=== PATIENT | female | born 1990 | race African-American/Black ===

== ENCOUNTER 2016-10-28 23:10 | Emergency (ER) | payer MEDICAID ==
[2016-10-28] MEDS ORDERED: DIPHENHYDRAMINE HCL 50 MG/ML VIAL IV ONE (23:29)
[2016-10-28] MEDS ORDERED: ONDANSETRON HCL INJ/PF 4 MG/2 ML SDV IV ONE (23:29)
[2016-10-28] MEDS ORDERED: NORMAL SALINE 1000 ML 1,000 ML IV ONE ×2 (23:29)
[2016-10-29 00:06] LABS: ABSOLUTE BASOPHILS # (AUTO) 0.1 10^3/uL (0.0-0.2); ABSOLUTE LYMPHOCYTES (AUTO) 1.3 10^3/uL (0.5-4.7); ABSOLUTE MONOCYTES (AUTO) 0.5 10^3/uL (0.1-1.4); ABSOLUTE NEUT (AUTO) 15.7 10^3/uL (1.7-8.2); BASOPHILS % (AUTO) 0.3 % (0-2); HEMOGLOBIN 14.9 g/dL (12.0-15.5); HGB HCT DIFFERENCE -0.3; LYMPHOCYTES % (AUTO) 7.2 % (13-45); MEAN CORPUSCULAR HEMOGLOBIN 33.3 pg (27.0-33.4); MEAN CORPUSCULAR HGB CONC 33.1 g/dL (32.0-36.0); MEAN CORPUSCULAR VOLUME 101 fl (80-97); MONOCYTES % (AUTO) 3.1 % (3-13); RED BLOOD COUNT 4.47 10^6/uL (3.72-5.28); RED CELL DISTRIBUTION WIDTH 12.9 % (11.5-14.0); SEGMENTED NEUTROPHILS % (AUTO) 89.4 % (42-78); WHITE BLOOD COUNT 17.6 10^3/uL (4.0-10.5)
[2016-10-29 00:20] LABS: ALANINE AMINOTRANSFERASE 31 U/L (9-52); ALBUMIN 5.4 g/dL (3.5-5.0); ALKALINE PHOSPHATASE 95 U/L (38-126); ASPARTATE AMINO TRANSFERASE 36 U/L (14-36); BILIRUBIN,TOTAL 0.9 mg/dL (0.2-1.3); BLOOD UREA NITROGEN 18 mg/dL (7-20); CALCIUM 10.4 mg/dL (8.4-10.2); CREATININE RESULT 0.93 mg/dL (0.52-1.25); GLUCOSE 154 mg/dL (75-110); POTASSIUM 3.2 mmol/L (3.6-5.0); TOTAL PROTEIN 8.7 g/dL (6.3-8.2)
[2016-10-29 00:29] LABS: CARBON DIOXIDE 32 mmol/L (22-30); CHLORIDE 90 mmol/L (98-107); SODIUM 142.4 mmol/L (137-145)
[2016-10-29 00:31] LABS: ANION GAP 20 (5-19)
[2016-10-29] MEDS ORDERED: MAG HYDROX/AL HYDROX/SIMETH SUSP 30 ML UDCUP PO ONE (01:51)
[2016-10-29] MEDS ORDERED: LIDOCAINE 2% VISCOUS SOLN 20 ML UDCUP PO ONE (01:51)
[2016-10-29] MEDS ORDERED: METOCLOPRAMIDE HCL ORAL SOLN 10 MG/10 ML UDCUP PO ONE (01:51)
[2016-10-29 02:21] LABS: APPEARANCE,URINE SLIGHTLY-CLOUDY; BILIRUBIN,URINE SMALL (NEGATIVE); GLUCOSE, URINE 50 mg/dL (NEGATIVE); KETONES,URINE 80 mg/dL (NEGATIVE); LEUKOCYTE ESTERASE,URINE NEGATIVE (NEGATIVE); NITRITE,URINE NEGATIVE (NEGATIVE); PROTEIN,URINE >=500 mg/dL (NEGATIVE); URINE SPECIFIC GRAVITY 1.028
[2016-10-29 02:32] LABS: URINE BARBITURATES SCREEN NEGATIVE; URINE METHADONE SCREEN NEGATIVE; URINE PHENCYCLIDINE SCREEN NEGATIVE
[2016-10-29] MEDS ORDERED: ONDANSETRON ODT 4 MG TAB (6 TAB/DSPK) PO PRN (02:42)
--- NOTE | 2016-10-29 02:45 | ER Document Report ---
ED GI/ - General Chief Complaint: Nausea/Vomiting/Diarrhea Stated Complaint: NAUSEA/VOMITING Notes: Patient is a 26-year-old female that comes emergency department for chief complaint of vomiting, patient states for the past 3 days she has not been able to keep anything down and has persistently vomited. Patient reports burning in her upper abdomen. She denies any diarrhea, fever, she denies any particular areas of pain. Patient denies any daily medications. Patient states she smokes marijuana only occasionally. TRAVEL OUTSIDE OF THE [place] IN LAST 30 DAYS: No - Related Data Allergies/Adverse Reactions: No Known Allergies Allergy (Verified 10/08/16 14:11) Past Medical History - General Information source: Patient - Social History Smoking Status: Never Smoker Frequency of alcohol use: None Drug Abuse: None Lives with: Family Family History: Reviewed & Not Pertinent, Other - Denied by the patient Neurological Medical History: Denies: Hx Seizures Renal/ Medical History: Denies: Hx Kidney Stones GI Medical History: Reports: Hx Gastroesophageal Reflux Disease Past Surgical History: Reports: Hx Section - x1. Denies: Hx Hysterectomy, Hx Pacemaker - Immunizations Hx Diphtheria, Pertussis, Tetanus Vaccination: Yes - < 10 yrs Review of Systems - Review of Systems Constitutional: No symptoms reported EENT: No symptoms reported Cardiovascular: No symptoms reported Respiratory: No symptoms reported Gastrointestinal: See HPI Genitourinary: No symptoms reported Female Genitourinary: No symptoms reported Musculoskeletal: No symptoms reported Skin: No symptoms reported Hematologic/Lymphatic: No symptoms reported Neurological/Psychological: No symptoms reported Physical Exam - Vital signs Vitals: Temp Pulse Resp BP Pulse Ox 98.7 F 88 18 136/98 H 98 10/29/16 04:30 10/29/16 04:30 10/29/16 04:30 10/29/16 04:30 10/29/16 04:30 Interpretation: Normal - General General appearance: Anxious In distress: Mild - Patient has difficulty holding still, appears anxious - HEENT Head: Normocephalic, Atraumatic Eyes: Normal Conjunctiva: Normal Extraocular movements intact: Yes Eyelashes: Normal Pupils: PERRL Sinus: Normal Nasal: Normal Mouth/Lips: Normal Mucous membranes: Dry Pharynx: Normal Neck: Normal - Respiratory Respiratory status: No respiratory distress Chest status: Nontender Breath sounds: Normal Chest palpation: Normal - Cardiovascular Rhythm: Regular. No: Tachycardia Heart sounds: Normal auscultation, S1 appreciated, S2 appreciated Murmur: No - Abdominal Inspection: Normal Distension: No distension Bowel sounds: Normal Tenderness: Nontender. No: Tender, Guarding Organomegaly: No organomegaly - Back Back: Normal, Nontender. 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 Patient given multiple fluid boluses of normal saline, after IV medications patient improved. Patient also given GI cocktail, after the symptoms resolved, patient asking to leave. Abdominal exam is very unremarkable with no guarding and no evidence of acute abdomen. Patient's testing is again positive for marijuana, I noticed that this is frequently positive, patient denies smoking every day but I suspect patient has developed cyclic vomiting syndrome secondary to cannabis abuse. Discussed this with patient, will provide with nausea medication, patient is to follow-up with primary care and return for any concerning symptoms. Patient states understanding and agreement. - Vital Signs Vital signs: Temp Pulse Resp BP Pulse Ox 98.7 F 88 18 136/98 H 98 10/29/16 04:30 10/29/16 04:30 10/29/16 04:30 10/29/16 04:30 10/29/16 04:30 - Laboratory Result Diagrams: 10/28/16 23:50 10/28/16 23:50 Laboratory results interpreted by me: 10/28/16 10/28/16 10/29/16 23:50 23:50 01:55 WBC 17.6 H MCV 101 H Seg Neutrophils % 89.4 H Lymphocytes % 7.2 L Absolute Neutrophils 15.7 H Potassium 3.2 L Chloride 90 L Carbon Dioxide 32 H Anion Gap 20 H Glucose 154 H Calcium 10.4 H Total Protein 8.7 H Albumin 5.4 H Urine Protein >=500 H Urine Glucose (UA) 50 H Urine Ketones 80 H Urine Bilirubin SMALL H Urine Urobilinogen 4.0 H Discharge - Discharge Clinical Impression: Dehydration Vomiting Qualifiers: Vomiting type: unspecified Vomiting Intractability: non-intractable Nausea presence: with nausea Qualified Code(s): R11.2 - Nausea with vomiting, unspecified Disposition: HOME, SELF-CARE Additional Instructions: Your symptoms are concerning for cyclic vomiting syndrome. Stop smoking marijuana. Take the Pepcid and Zofran for nausea, take Benadryl [id number] for nausea additionally. Follow-up with primary care. Return to emergency department for any concerning or worsening symptoms. Prescriptions: Famotidine [Pepcid 20 mg Tablet] 20 mg PO BID #20 tablet Ondansetron [Zofran Odt 4 mg Tablet] 1 - 2 tab PO Q4H PRN #20 tab.rapdis PRN Reason: For Nausea/Vomiting
[2016-10-29 05:34] VITALS: BP 136/98
== END 2016-10-29 04:35 | disposition home or self-care (01) ==
LOC: ER 23:10
DX: R11.2 Nausea with vomiting, unspecified (principal); E86.0 Dehydration; D72.828 Other elevated white blood cell count; F41.9 Anxiety disorder, unspecified; Z87.19 Personal history of other diseases of the digestive system; Z87.442 Personal history of urinary calculi
CPT/HCPCS: 99284; 96361; 96374; 96375; 36415; 83690; 83735; 85025; 81025; 80053; 81001; 80307; J1200; J3490 ×3; J2405; J7030

== ENCOUNTER 2017-02-04 09:44 | Emergency (ER) | payer MEDICAID ==
[2017-02-04 10:07] VITALS: BP 124/70
[2017-02-04] MEDS ORDERED: MAG HYDROX/AL HYDROX/SIMETH SUSP 30 ML UDCUP PO ONE (11:12)
[2017-02-04] MEDS ORDERED: LANSOPRAZOLE 30 MG TAB.RAP.DR PO ONE (11:12)
[2017-02-04] MEDS ORDERED: LIDOCAINE 2% VISCOUS SOLN 20 ML UDCUP PO ONE (11:12)
[2017-02-04] MEDS ORDERED: ONDANSETRON 4 MG TAB.RAPDIS PO ONE (11:12)
[2017-02-04] MEDS ORDERED: NORMAL SALINE 1000 ML 2,000 ML IV ONE (11:13)
[2017-02-04] MEDS ORDERED: ACETAMINOPHEN 325 MG TABLET PO ONE ×2 (11:13→14:50)
--- NOTE | 2017-02-04 11:15 | ER Document Report ---
ED Medical Screen (RME) - General Chief Complaint: Nausea/Vomiting Stated Complaint: NAUSEA Time seen by provider: 11:14 Mode of Arrival: Medic Information source: Patient Notes: 26-year-old female came in by EMS due to vomiting all night long. She has upper abdominal pain that started after the multiple episodes of vomiting. She has a history of GERD and feels esophageal burning at this time. She is dramatic and rolling around with her eyes and body in triage and will not maintain eye contact due to abdominal pain. No diarrhea. No fever. TRAVEL OUTSIDE OF THE [place] IN LAST 30 DAYS: No - Related Data Allergies/Adverse Reactions: No Known Allergies Allergy (Verified 10/08/16 14:11) Past Medical History Neurological Medical History: Denies: Hx Seizures Renal/ Medical History: Denies: Hx Kidney Stones, Hx Peritoneal Dialysis GI Medical History: Reports: Hx Gastroesophageal Reflux Disease Past Surgical History: Reports: Hx Section - x1. Denies: Hx Hysterectomy, Hx Pacemaker - Immunizations Hx Diphtheria, Pertussis, Tetanus Vaccination: Yes - < 10 yrs Physical Exam - Vital signs Vitals: Temp Pulse Resp BP Pulse Ox 97.9 F 88 18 124/70 97 02/04/17 10:02 02/04/17 10:02 02/04/17 10:02 02/04/17 10:02 02/04/17 10:02 Course - Vital Signs Vital signs: Temp Pulse Resp BP Pulse Ox 97.9 F 88 18 124/70 97 02/04/17 10:02 02/04/17 10:02 02/04/17 10:02 02/04/17 10:02 02/04/17 10:02
[2017-02-04 12:02] LABS: ABSOLUTE BASOPHILS # (AUTO) 0.1 10^3/uL (0.0-0.2); ABSOLUTE LYMPHOCYTES (AUTO) 1.5 10^3/uL (0.5-4.7); ABSOLUTE NEUT (AUTO) 14.3 10^3/uL (1.7-8.2); BASOPHILS % (AUTO) 0.6 % (0-2); HEMATOCRIT 43.7 % (36.0-47.0); HEMOGLOBIN 15.2 g/dL (12.0-15.5); HGB HCT DIFFERENCE 1.9; LYMPHOCYTES % (AUTO) 8.7 % (13-45); MEAN CORPUSCULAR HEMOGLOBIN 33.6 pg (27.0-33.4); MEAN CORPUSCULAR HGB CONC 34.8 g/dL (32.0-36.0); MEAN CORPUSCULAR VOLUME 97 fl (80-97); MONOCYTES % (AUTO) 6.1 % (3-13); RED BLOOD COUNT 4.53 10^6/uL (3.72-5.28); RED CELL DISTRIBUTION WIDTH 13.2 % (11.5-14.0); SEGMENTED NEUTROPHILS % (AUTO) 84.6 % (42-78)
[2017-02-04 12:20] LABS: ALANINE AMINOTRANSFERASE 34 U/L (9-52); ALBUMIN 5.7 g/dL (3.5-5.0); ALKALINE PHOSPHATASE 92 U/L (38-126); ANION GAP 27 (5-19); ASPARTATE AMINO TRANSFERASE 49 U/L (14-36); BILIRUBIN,DIRECT 0.5 mg/dL (0.0-0.4); BILIRUBIN,TOTAL 1.2 mg/dL (0.2-1.3); BLOOD UREA NITROGEN 37 mg/dL (7-20); CALCIUM 10.3 mg/dL (8.4-10.2); CARBON DIOXIDE 32 mmol/L (22-30); CHLORIDE 85 mmol/L (98-107); CREATININE RESULT 0.78 mg/dL (0.52-1.25); GLUCOSE 141 mg/dL (75-110); LIPASE 34.6 U/L (23-300); POTASSIUM 3.6 mmol/L (3.6-5.0); SODIUM 143.9 mmol/L (137-145); TOTAL PROTEIN 9.7 g/dL (6.3-8.2)
[2017-02-04 12:29] LABS: APPEARANCE,URINE CLOUDY; BILIRUBIN,URINE NEGATIVE (NEGATIVE); GLUCOSE, URINE NEGATIVE (NEGATIVE); KETONES,URINE 80 mg/dL (NEGATIVE); LEUKOCYTE ESTERASE,URINE NEGATIVE (NEGATIVE); NITRITE,URINE NEGATIVE (NEGATIVE); PROTEIN,URINE >=500 mg/dL (NEGATIVE); URINE SPECIFIC GRAVITY 1.032; UROBILINOGEN,URINE NEGATIVE mg/dL (<2.0)
--- NOTE | 2017-02-04 14:49 | ER Document Report ---
ED GI/ - General Mode of Arrival: Medic Information source: Patient TRAVEL OUTSIDE OF THE [place] IN LAST 30 DAYS: No - HPI Patient complains to provider of: Abdominal pain, Vomiting Onset: Yesterday Associated symptoms: Other - see notes above <JOSE ADAMS - Last Filed: 02/04/17 15:52> <RAHEEM GRAHAM - Last Filed: 02/23/17 15:57> - General Chief Complaint: Nausea/Vomiting Stated Complaint: NAUSEA Notes: 26 year old female with history of smoking and marijuana use presents to the ED complaining of nausea, vomiting, and abdominal pain that started last night. Patient reports that she has stopped smoking marijuana. Patient states that she takes prilosec, but it has and vomited up the last pill she took. Patient denies being . (JOSE ADAMS) - Related Data Allergies/Adverse Reactions: No Known Allergies Allergy (Verified 02/10/17 05:49) Past Medical History - General Information source: Patient - Social History Smoking Status: Never Smoker Frequency of alcohol use: None Drug Abuse: Marijuana Family History: Reviewed & Not Pertinent, Other - Denied by the patient Patient has suicidal ideation: No Patient has homicidal ideation: No GI Medical History: Reports: Hx Gastroesophageal Reflux Disease Past Surgical History: Reports: Hx Section - x1 - Immunizations Hx Diphtheria, Pertussis, Tetanus Vaccination: Yes - < 10 yrs <JOSE ADAMS - Last Filed: 02/04/17 15:52> Review of Systems - Review of Systems Constitutional: No symptoms reported EENT: No symptoms reported Cardiovascular: No symptoms reported Respiratory: No symptoms reported Gastrointestinal: See HPI, Abdominal pain, Nausea, Vomiting Genitourinary: No symptoms reported Female Genitourinary: No symptoms reported. denies: Musculoskeletal: No symptoms reported Skin: No symptoms reported Hematologic/Lymphatic: No symptoms reported Neurological/Psychological: No symptoms reported -: Yes All other systems reviewed and negative <JOSE ADAMS - Last Filed: 02/04/17 15:52> Physical Exam - General General appearance: Alert In distress: None - HEENT Head: Normocephalic, Atraumatic Eyes: Normal Extraocular movements intact: Yes Pupils: PERRL - Respiratory Respiratory status: No respiratory distress Breath sounds: Normal - Cardiovascular Rhythm: Regular Heart sounds: Normal auscultation - Abdominal Inspection: Normal Distension: No distension Tenderness: Nontender - Back Back: Normal - Extremities General upper extremity: Normal inspection, Normal ROM General lower extremity: Normal inspection, Normal ROM - Neurological Neuro grossly intact: Yes Cognition: Normal Orientation: AAOx4 Dara Coma Scale Eye Opening: Spontaneous Dara Coma Scale Verbal: Oriented [place] Coma Scale Motor: Obeys Commands [place] Coma Scale Total: 15 Speech: Normal - Psychological Associated symptoms: Normal affect, Normal mood - Skin Skin Temperature: Warm Skin Moisture: Dry Skin Color: Normal <JOSE ADAMS - Last Filed: 02/04/17 15:52> Course - Laboratory Result Diagrams: 02/04/17 11:22 02/04/17 11:22 <JOSE ADAMS - Last Filed: 02/04/17 15:52> - Laboratory Result Diagrams: 02/04/17 11:22 02/04/17 11:22 <RAHEEM GRAHAM - Last Filed: 02/23/17 15:57> - Re-evaluation Re-evalutation: 02/04/17 16:51 (RAHEEM GRAHAM) - Vital Signs Vital signs: Temp Pulse Resp BP Pulse Ox 97.9 F 88 18 124/70 97 02/04/17 10:02 02/04/17 10:02 02/04/17 10:02 02/04/17 10:02 02/04/17 10:02 - Laboratory Laboratory results interpreted by me: 02/04/17 02/04/17 02/04/17 11:22 11:22 11:22 WBC 17.0 H MCH 33.6 H Seg Neutrophils % 84.6 H Lymphocytes % 8.7 L Absolute Neutrophils 14.3 H Chloride 85 L Carbon Dioxide 32 H Anion Gap 27 H BUN 37 H Glucose 141 H Calcium 10.3 H Direct Bilirubin 0.5 H AST 49 H Total Protein 9.7 H Albumin 5.7 H Urine Protein >=500 H Urine Ketones 80 H Urine Blood SMALL H Discharge <JOSE ADAMS - Last Filed: 02/04/17 15:52> <RAHEEM GRAHAM - Last Filed: 02/23/17 15:57> - Discharge Clinical Impression: recurrent nausea vomiting, Tetrahydrocannabinol (THC) use disorder, mild, abuse Condition: Stable Disposition: HOME, SELF-CARE Additional Instructions: recurrent Vomiting Vomiting can be part of many illnesses. Most cases of vomiting are due to gastroenteritis, usually a viral infection in the intestinal tract. There is no specific treatment. The disease will end by itself. For now, the main danger to your child is dehydration. During the first few hours of the illness, give clear liquids, such as Pedialyte. Try to give small quantities frequently, such as a teaspoon of liquid every minute or about an ounce of fluids every five to ten minutes. Medications may be prescribed by the physician for special cases. After an hour or two of fluids without vomiting, add rice cereal, toast, applesauce, or bananas and other more solid foods to the clear liquids. Call the physician or go to the hospital if vomiting increases or blood appears in the bowel movement or vomitus; if your child fails to improve, or if signs of dehydration occur (no wet diapers for eight to twelve hours, tongue and mouth become dry, not acting as alert as usual). Referrals: BUZZ SPENCER MD [ACTIVE STAFF] - Follow up in 3-5 days (Call for appointment on Monday but he seen 3-5 days term for increasing worsening or new symptoms) Scribe Attestation: 02/23/17 15:56 i personally performed the services described in the documentation, reviewed the documentation recorded by the scribe in my presence and it accurately and completely records my words and actions (RAHEEM GRAHAM) Scribe Documentation - Scribe Written by Pantera:: Pantera Kam, 02/04/2017 1505 acting as scribe for :: Atilio <JOSE ADAMS - Last Filed: 02/04/17 15:52>
[2017-02-04] MEDS ORDERED: CALCIUM CARBONATE 500 MG TAB.CHEW PO ONE (14:51)
[2017-02-04 16:43] LABS: URINE BARBITURATES SCREEN NEGATIVE; URINE METHADONE SCREEN NEGATIVE; URINE OPIATES LOW NEGATIVE; URINE PHENCYCLIDINE SCREEN NEGATIVE
== END 2017-02-04 16:40 | disposition home or self-care (01) ==
LOC: ER 09:44
DX: R11.2 Nausea with vomiting, unspecified (principal)
CPT/HCPCS: 99284; 36415; 87086; 83690; 84703; 85025; 80053; 81001; 80307; J3490 ×4; S0119

== ENCOUNTER 2017-02-10 01:47 | Inpatient (IN) | payer MEDICAID ==
[2017-02-10] MEDS ORDERED: LIDOCAINE 2% VISCOUS SOLN 20 ML UDCUP PO ONE (04:26)
[2017-02-10] MEDS ORDERED: MAG HYDROX/AL HYDROX/SIMETH SUSP 30 ML UDCUP PO ONE (04:26)
[2017-02-10] MEDS ORDERED: METOCLOPRAMIDE HCL ORAL SOLN 10 MG/10 ML UDCUP PO ONE (04:26)
[2017-02-10] MEDS ORDERED: NORMAL SALINE 1000 ML 1,000 ML IV ONE ×2 (04:29)
--- NOTE | 2017-02-10 04:32 | ER Document Report ---
ED GI/ - General Chief Complaint: Nausea/Vomiting/Diarrhea Stated Complaint: NAUSEA VOMITING DIARRHEA Time seen by provider: 04:30 Notes: Patient is a 26-year-old female that comes emergency department for chief complaint of nausea and vomiting with occasional loose stools for the past 3 days. She states she has vomited nonstop, over 20 times a day. Patient has had episodes like this in the past, has a known history of marijuana use. Patient denies blood in vomit or stool. She denies fever. She states she got lightheaded and passed out in the kitchen earlier today. She denies head pain, denies back pain, denies any areas of pain. She states she is just nauseated. She denies any particular area of abdominal pain. She states she last smoked marijuana on Monday. She denies any daily medications or surgeries. She denies any other past medical history. TRAVEL OUTSIDE OF THE [place] IN LAST 30 DAYS: No - Related Data Allergies/Adverse Reactions: No Known Allergies Allergy (Verified 02/10/17 05:49) Past Medical History - General Information source: Patient - Social History Smoking Status: Never Smoker Drug Abuse: Marijuana Lives with: Alone Family History: Reviewed & Not Pertinent, Other - Denied by the patient Neurological Medical History: Denies: Hx Seizures Renal/ Medical History: Denies: Hx Kidney Stones, Hx Peritoneal Dialysis GI Medical History: Reports: Hx Gastroesophageal Reflux Disease Past Surgical History: Reports: Hx Section - x1. Denies: Hx Hysterectomy, Hx Pacemaker - Immunizations Hx Diphtheria, Pertussis, Tetanus Vaccination: Yes - < 10 yrs Review of Systems - Review of Systems Constitutional: No symptoms reported EENT: No symptoms reported Cardiovascular: No symptoms reported Respiratory: No symptoms reported Gastrointestinal: See HPI Genitourinary: No symptoms reported Female Genitourinary: No symptoms reported Musculoskeletal: No symptoms reported Skin: No symptoms reported Hematologic/Lymphatic: No symptoms reported Neurological/Psychological: See HPI Physical Exam - Vital signs Vitals: Temp Pulse Resp BP Pulse Ox 98.6 F 82 19 134/69 H 94 02/10/17 01:59 02/10/17 01:59 02/10/17 01:59 02/10/17 01:59 02/10/17 01:59 Interpretation: Normal - General General appearance: Anxious In distress: None - HEENT Head: Normocephalic, Atraumatic Eyes: Normal Conjunctiva: Normal Extraocular movements intact: Yes Eyelashes: Normal Pupils: PERRL Mouth/Lips: Normal Mucous membranes: Dry Pharynx: Normal Neck: Normal - Respiratory Respiratory status: No respiratory distress Chest status: Nontender Breath sounds: Normal Chest palpation: Normal - Cardiovascular Rhythm: Regular Heart sounds: Normal auscultation Murmur: No - Abdominal Inspection: Normal Distension: No distension Bowel sounds: Normal Tenderness: Nontender. No: Tender - Actually very soft and completely benign abdomen with no guarding whatsoever, Guarding Organomegaly: No organomegaly - Back Back: Normal, Nontender. No: CVA tenderness - Extremities General upper extremity: Normal inspection, Nontender, Normal color, Normal ROM , Normal temperature General lower extremity: Normal inspection, Nontender, Normal color, Normal ROM , Normal temperature, Normal weight bearing. No: Kya's sign - Neurological Neuro grossly intact: Yes Cognition: Normal Orientation: AAOx4 Dara Coma Scale Eye Opening: Spontaneous Dara Coma Scale Verbal: Oriented Dara Coma Scale Motor: Obeys Commands Dara Coma Scale Total: 15 Speech: Normal Motor strength normal: LUE, RUE, LLE, RLE Sensory: Normal - Psychological Associated symptoms: Anxious - Skin Skin Temperature: Warm Skin Moisture: Dry Skin Color: Normal Course - Re-evaluation Re-evalutation: Patient reportedly much more comfortable after GI cocktail, she went to sleep, however she awoke and was dry heaving in the room. Patient is not tachycardic, workup pending. Patient is a very soft abdomen. Patient will be given 2 L normal saline. Workup is worse than patient appears. Leukocytosis at 27,000, bicarbonate of 53 , potassium of only 2.1. Sodium of 121. Magnesium tested and pending. Patient continues to have very benign exam. Discussed with Dr. Monsalve, recommends admission to the hospital for rehydration , sodium correction, and potassium replacement. Patient is very agreeable with this plan. Discussed with Dr. Dimas, he states the patient is not under his care. Discussed with Dr. Pino, patient will be admitted to the hospital. - Vital Signs Vital signs: Temp Pulse Resp BP Pulse Ox 98.6 F 69 18 124/70 94 02/10/17 01:59 02/10/17 07:00 02/10/17 07:00 02/10/17 07:00 02/10/17 01:59 - Laboratory Result Diagrams: 02/10/17 04:50 02/10/17 04:50 Laboratory results interpreted by me: 02/10/17 02/10/17 02/10/17 04:50 04:50 04:50 WBC 27.3 H Hgb 15.7 H MCH 33.6 H Band Neutrophils % 1 L Lymphocytes % (Manual) 11 L Abs Neuts (Manual) 21.6 H Abs Monocytes (Manual) 1.9 H Sodium 121.3 L Potassium 2.1 L* Chloride 54 L Carbon Dioxide 53 H* BUN 36 H Glucose 143 H Magnesium Total Bilirubin 1.4 H AST 197 H ALT 82 H Total Protein 8.3 H Urine Protein >=500 H Urine Glucose (UA) 50 H Urine Blood MODERATE H Urine Urobilinogen 4.0 H 02/10/17 04:50 WBC Hgb MCH Band Neutrophils % Lymphocytes % (Manual) Abs Neuts (Manual) Abs Monocytes (Manual) Sodium Potassium Chloride Carbon Dioxide BUN Glucose Magnesium 2.8 H Total Bilirubin AST ALT Total Protein Urine Protein Urine Glucose (UA) Urine Blood Urine Urobilinogen Discharge - Discharge Clinical Impression: Cannabis abuse, Hyponatremia, Hypokalemia Vomiting Qualifiers: Vomiting type: unspecified Vomiting Intractability: non-intractable Nausea presence: with nausea Qualified Code(s): R11.2 - Nausea with vomiting, unspecified Condition: Stable Disposition: ADMITTED INPATIENT Admitting Provider: Hospitalist Unit Admitted: Telemetry Referrals: EMILEE OTERO MD [Primary Care Provider] - Follow up as needed
[2017-02-10 05:24] LABS: HEMATOCRIT 43.7 % (36.0-47.0); HEMOGLOBIN 15.7 g/dL (12.0-15.5); HGB HCT DIFFERENCE 3.4; MEAN CORPUSCULAR HEMOGLOBIN 33.6 pg (27.0-33.4); MEAN CORPUSCULAR HGB CONC 35.9 g/dL (32.0-36.0); MEAN CORPUSCULAR VOLUME 94 fl (80-97); RED BLOOD COUNT 4.66 10^6/uL (3.72-5.28); RED CELL DISTRIBUTION WIDTH 12.9 % (11.5-14.0); WHITE BLOOD COUNT 27.3 10^3/uL (4.0-10.5)
[2017-02-10 05:30] LABS: URINE BARBITURATES SCREEN NEGATIVE; URINE METHADONE SCREEN NEGATIVE; URINE OPIATES LOW NEGATIVE; URINE PHENCYCLIDINE SCREEN NEGATIVE
[2017-02-10 05:33] LABS: APPEARANCE,URINE SLIGHTLY-CLOUDY; BILIRUBIN,URINE NEGATIVE (NEGATIVE); GLUCOSE, URINE 50 mg/dL (NEGATIVE); KETONES,URINE NEGATIVE (NEGATIVE); LEUKOCYTE ESTERASE,URINE NEGATIVE (NEGATIVE); NITRITE,URINE NEGATIVE (NEGATIVE); PROTEIN,URINE >=500 mg/dL (NEGATIVE); URINE SPECIFIC GRAVITY 1.023
[2017-02-10 05:37] LABS: ALANINE AMINOTRANSFERASE 82 U/L (9-52); ALBUMIN 4.7 g/dL (3.5-5.0); ALKALINE PHOSPHATASE 104 U/L (38-126); ASPARTATE AMINO TRANSFERASE 197 U/L (14-36); BILIRUBIN,DIRECT 0.4 mg/dL (0.0-0.4); BILIRUBIN,TOTAL 1.4 mg/dL (0.2-1.3); BLOOD UREA NITROGEN 36 mg/dL (7-20); CALCIUM 9.7 mg/dL (8.4-10.2); CHLORIDE 54 mmol/L (98-107); CREATININE RESULT 0.96 mg/dL (0.52-1.25); GLUCOSE 143 mg/dL (75-110); LIPASE 87.1 U/L (23-300); SODIUM 121.3 mmol/L (137-145); TOTAL PROTEIN 8.3 g/dL (6.3-8.2)
[2017-02-10 05:42] LABS: BAND NEUTROPHILS % (MANUAL) 1 % (3-5); BASOPHILS % (MANUAL) 0 % (0-2); EOSINOPHILS % (MANUAL) 0 % (0-6); LYMPHOCYTES % (MANUAL) 11 % (13-45); TOTAL CELLS COUNTED 100
[2017-02-10 05:44] LABS: RBC MORPHOLOGY COMMENT NORMO-CYTIC/CHROMIC; TOXIC VACUOLATION PRESENT
[2017-02-10 05:47] LABS: ANION GAP 14 (5-19)
[2017-02-10 05:51] LABS: CARBON DIOXIDE 53 mmol/L (22-30); POTASSIUM 2.1 mmol/L (3.6-5.0)
[2017-02-10] MEDS ORDERED: CAPSAICIN HP 0.075% CREAM 60 GM TP ONE (05:52)
[2017-02-10] MEDS ORDERED: POTASSIUM CHLORIDE 10 MEQ TABLET.SA PO ONE (05:53)
[2017-02-10] MEDS ORDERED: NORMAL SALINE 1000 ML 1,000 ML IV PRN (06:15)
[2017-02-10] MEDS: POTASSI CL 20 MEQ/50 ML RIDER 50 ML IV SCH ×4 (06:30→22:09)
[2017-02-10] MEDS ORDERED: CAPSAICIN HP 0.075% CREAM 60 GM ONE (07:16)
--- NOTE | 2017-02-10 09:35 | EKG REPORT ---
SEVERITY:- ABNORMAL ECG - SINUS RHYTHM CONSIDER LEFT VENTRICULAR HYPERTROPHY PROLONGED QT INTERVAL : Confirmed by: Ronel Lane 10-Feb-2017 09:34:52
[2017-02-10] MEDS ORDERED: ONDANSETRON HCL INJ/PF 4 MG/2 ML SDV IV PRN (11:12)
--- NOTE | 2017-02-10 11:42 | PDOC H&P ---
History of Present Illness Admission Date/PCP: 02/10/17 07:59 EMILEE OTERO MD Patient complains of: intractable vomiting History of Present Illness: TONY CANALES is a 26 year old female that comes emergency department for chief complaint of nausea and vomiting with occasional loose stools for the past 3 days. She states she has vomited nonstop , over 20 times a day. Patient has had episodes like this in the past, has a known history of marijuana use. Patient denies blood in vomit or stool. She denies fever. She states she got lightheaded and passed out in the kitchen earlier today. She denies head pain, denies back pain, denies any areas of pain. She states she is just nauseated. She denies any particular area of abdominal pain. She states she last smoked marijuana on Monday. She denies any daily medications or surgeries. She denies any other past medical history. Past Medical History Neurological Medical History: Denies: Seizures GI Medical History: Reports: Gastroesophageal Reflux Disease Past Surgical History Past Surgical History: Reports: Section - x1 Denies: Hysterectomy, Pacemaker Social History Information Source: Patient Lives with: Alone Smoking Status: Current Every Day Smoker Frequency of Alcohol Use: None Hx Recreational Drug Use: Yes Drugs: Marijuana Hx Prescription Drug Abuse: No - Advance Directive Resuscitation Status: Full Code Surrogate healthcare decision maker:: Her mother Maite Family History Family History: Reviewed & Not Pertinent, Other - Denied by the patient Parental Family History Reviewed: Yes Children Family History Reviewed: Yes Sibling(s) Family History Reviewed.: Yes Medication/Allergy Home Medications: No Home Medications 02/10/17 Allergies/Adverse Reactions: No Known Allergies Allergy (Verified 02/10/17 05:49) Review of Systems Constitutional: ABSENT: chills, fever(s), headache(s), weight gain, weight loss Eyes: ABSENT: visual disturbances Ears: ABSENT: hearing changes Cardiovascular: ABSENT: chest pain, dyspnea on exertion, edema, orthropnea, palpitations Respiratory: ABSENT: cough, hemoptysis Gastrointestinal: PRESENT: as per HPI, abdominal pain - Diffuse, nausea, vomiting. ABSENT: constipation, diarrhea, hematemesis, hematochezia Genitourinary: ABSENT: dysuria, hematuria Musculoskeletal: ABSENT: joint swelling Integumentary: ABSENT: rash, wounds Neurological: ABSENT: abnormal gait, abnormal speech, confusion, dizziness, focal weakness, syncope Psychiatric: ABSENT: anxiety, depression, homidical ideation, suicidal ideation Endocrine: ABSENT: cold intolerance, heat intolerance, polydipsia, polyuria Hematologic/Lymphatic: ABSENT: easy bleeding, easy bruising Physical Exam Vital Signs: Temp Pulse Resp BP Pulse Ox 98.6 F 69 18 124/70 94 02/10/17 01:59 02/10/17 07:00 02/10/17 07:00 02/10/17 07:00 02/10/17 01:59 General appearance: PRESENT: no acute distress, well-developed, well-nourished Head exam: PRESENT: atraumatic, normocephalic Eye exam: PRESENT: conjunctiva pink, EOMI, PERRLA. ABSENT: scleral icterus Ear exam: PRESENT: normal external ear exam Mouth exam: PRESENT: moist, tongue midline Neck exam: ABSENT: carotid bruit, JVD, lymphadenopathy, thyromegaly Respiratory exam: PRESENT: clear to auscultation jef. ABSENT: rales, rhonchi, wheezes Cardiovascular exam: PRESENT: RRR. ABSENT: diastolic murmur, rubs, systolic murmur Pulses: PRESENT: normal dorsalis pedis pul Vascular exam: PRESENT: normal capillary refill GI/Abdominal exam: PRESENT: normal bowel sounds, soft. ABSENT: distended, guarding, mass, organolmegaly, rebound, tenderness Rectal exam: PRESENT: deferred Extremities exam: PRESENT: full ROM. ABSENT: calf tenderness, clubbing, pedal edema Neurological exam: PRESENT: alert, awake, oriented to person, oriented to place , oriented to time, oriented to situation, CN II-XII grossly intact. ABSENT: motor sensory deficit Psychiatric exam: PRESENT: appropriate affect, normal mood. ABSENT: homicidal ideation, suicidal ideation Skin exam: PRESENT: dry, intact, warm. ABSENT: cyanosis, rash Results Laboratory Results: Labs- All tests 24 hr 02/10/17 02/10/17 02/10/17 04:50 04:50 04:50 WBC 27.3 H RBC 4.66 Hgb 15.7 H Hct 43.7 MCV 94 MCH 33.6 H MCHC 35.9 RDW 12.9 Plt Count 292 Total Counted 100 Seg Neutrophils % Not Reportable Seg Neuts % (Manual) 78 Band Neutrophils % 1 L Lymphocytes % Not Reportable Lymphocytes % (Manual) 11 L Atypical Lymphs % 3 Monocytes % Not Reportable Monocytes % (Manual) 7 Eosinophils % Not Reportable Eosinophils % (Manual) 0 Basophils % Not Reportable Basophils % (Manual) 0 Absolute Neutrophils Not Reportable Abs Neuts (Manual) 21.6 H Absolute Lymphocytes Not Reportable Abs Lymphs (Manual) 3.8 Absolute Monocytes Not Reportable Abs Monocytes (Manual) 1.9 H Absolute Eosinophils Not Reportable Absolute Eos (Manual) 0.0 Absolute Basophils Not Reportable Abs Basophils (Manual) 0.0 Toxic Vacuolation PRESENT Platelet Comment ADEQUATE RBC Morph Comment NORMO-CYTIC/CHROMIC Sodium 121.3 L Potassium 2.1 L* Chloride 54 L Carbon Dioxide 53 H* Anion Gap 14 BUN 36 H Creatinine 0.96 Est GFR ( Amer) > 60 Est GFR (Non-Af Amer) > 60 Glucose 143 H Calcium 9.7 Magnesium Total Bilirubin 1.4 H Direct Bilirubin 0.4 Indirect Bilirubin Not Reportable Neonat Total Bilirubin Not Reportable AST 197 H ALT 82 H Alkaline Phosphatase 104 Total Protein 8.3 H Albumin 4.7 Lipase 87.1 Serum HCG, Qual NEGATIVE Urine Color Urine Appearance Urine pH Ur Specific [place] Urine Protein Urine Glucose (UA) Urine Ketones Urine Blood Urine Nitrite Urine Bilirubin Urine Urobilinogen Ur Leukocyte Esterase Urine WBC (Auto) Urine RBC (Auto) Urine Bacteria (Auto) Squamous Epi Cells Auto Urine Mucus (Auto) Urine Ascorbic Acid Urine Opiates Screen Urine Methadone Screen Ur Barbiturates Screen Ur Phencyclidine Scrn Ur Amphetamines Screen U Benzodiazepines Scrn Urine Cocaine Screen U Marijuana (THC) Screen 02/10/17 02/10/17 02/10/17 04:50 04:50 04:50 WBC RBC Hgb Hct MCV MCH MCHC RDW Plt Count Total Counted Seg Neutrophils % Seg Neuts % (Manual) Band Neutrophils % Lymphocytes % Lymphocytes % (Manual) Atypical Lymphs % Monocytes % Monocytes % (Manual) Eosinophils % Eosinophils % (Manual) Basophils % Basophils % (Manual) Absolute Neutrophils Abs Neuts (Manual) Absolute Lymphocytes Abs Lymphs (Manual) Absolute Monocytes Abs Monocytes (Manual) Absolute Eosinophils Absolute Eos (Manual) Absolute Basophils Abs Basophils (Manual) Toxic Vacuolation Platelet Comment RBC Morph Comment Sodium Potassium Chloride Carbon Dioxide Anion Gap BUN Creatinine Est GFR ( Amer) Est GFR (Non-Af Amer) Glucose Calcium Magnesium 2.8 H Total Bilirubin Direct Bilirubin Indirect Bilirubin Neonat Total Bilirubin AST ALT Alkaline Phosphatase Total Protein Albumin Lipase Serum HCG, Qual Urine Color YELLOW Urine Appearance SLIGHTLY-CLOUDY Urine pH 6.0 Ur Specific [place] 1.023 Urine Protein >=500 H Urine Glucose (UA) 50 H Urine Ketones NEGATIVE Urine Blood MODERATE H Urine Nitrite NEGATIVE Urine Bilirubin NEGATIVE Urine Urobilinogen 4.0 H Ur Leukocyte Esterase NEGATIVE Urine WBC (Auto) 8 Urine RBC (Auto) 6 Urine Bacteria (Auto) TRACE Squamous Epi Cells Auto 2 Urine Mucus (Auto) RARE Urine Ascorbic Acid NEGATIVE Urine Opiates Screen NEGATIVE Urine Methadone Screen NEGATIVE Ur Barbiturates Screen NEGATIVE Ur Phencyclidine Scrn NEGATIVE Ur Amphetamines Screen NEGATIVE U Benzodiazepines Scrn NEGATIVE Urine Cocaine Screen NEGATIVE U Marijuana (THC) Screen UNCONFIRMED POSITIVE EKG Comments: SINUS RHYTHM [LVHC] . CONSIDER LEFT VENTRICULAR HYPERTROPHY - STMT - * PROLONGED QT INTERVAL [id number] TONY CANALES 10-Feb-2017 06:23:18 : 1990 26 Years Female Race: Black Dept: ED Oper: MG HR 69 WA 144 QRSD 82 QT 444 QTc 476 -- AXIS -- P 18 QRS 10 T 214 Requested By: ERICK ADAMS Order Assessment & Plan - Diagnosis (1) Cannabis abuse Is this a current diagnosis for this admission?: Yes (2) Hypokalemia Is this a current diagnosis for this admission?: Yes (3) Hyponatremia Is this a current diagnosis for this admission?: Yes (4) Vomiting Qualifiers: Vomiting type: unspecified Vomiting Intractability: non-intractable Nausea presence: with nausea Qualified Code(s): R11.2 - Nausea with vomiting, unspecified (5) Leukocytosis Is this a current diagnosis for this admission?: YesPlan: Likely related to SIRS and dehydration There is no fever No signs of infection We will repeat in a.m. after hydration - Time Time Spent with patient: We'll replenish electrolytes Hydrate Repeat EKG in a.m. Noted that the EKG is quite normal with some ST-T changes EKG abnormalities likely to be related to hypomagnesemia and hypokalemia Time Spent: 50 to 70 Minutes - Inpatient Certification Medical Necessity: Need Close Monitoring Due to Risk of Patient Decompensation, Need For IV Fluids, Need For Continuous Telemetry Monitoring
[2017-02-10] MEDS ORDERED: PANTOPRAZOLE SODIUM 40 MG VIAL IV ONE (12:00)
[2017-02-10] MEDS: POTASSI CL 40 MEQ/NS 1L 1,000 ML IV PRN ×2 (12:04→17:40)
[2017-02-10 16:37] LABS: BLOOD UREA NITROGEN 19 mg/dL (7-20); CALCIUM 8.6 mg/dL (8.4-10.2); CHLORIDE 76 mmol/L (98-107); GLUCOSE 92 mg/dL (75-110); MAGNESIUM 2.3 mg/dL (1.6-2.3)
[2017-02-10 16:46] LABS: ANION GAP 8 (5-19)
[2017-02-10 16:48] LABS: POTASSIUM 2.7 mmol/L (3.6-5.0)
[2017-02-10 16:49] LABS: CARBON DIOXIDE 44 mmol/L (22-30)
[2017-02-10] MEDS ORDERED: POTASSI CL 40 MEQ/NS 1L 1,000 ML IV PRN (17:59)
[2017-02-10] MEDS ORDERED: NORMAL SALINE 1000 ML 2,000 ML IV PRN (18:30)
[2017-02-10] MEDS ORDERED: POTASSIUM CHLORIDE 20 MEQ/15 ML UDCUP PO ONE (18:30)
--- NOTE | 2017-02-10 19:36 | EKG REPORT ---
SEVERITY:- ABNORMAL ECG - SINUS RHYTHM ABNORMAL T, CONSIDER ISCHEMIA, INFERIOR LEADS PROLONGED QT INTERVAL : Confirmed by: Ronel Lane 10-Feb-2017 19:35:57
[2017-02-10] MEDS: PANTOPRAZOLE SODIUM 40 MG VIAL IV SCH (22:09)
[2017-02-11] MEDS ORDERED: POTASSI CL 20 MEQ/50 ML RIDER 20 MEQ/50 ML RTUPB IV ONE (02:45)
[2017-02-11 06:50] LABS: ANION GAP 8 (5-19); BLOOD UREA NITROGEN 10 mg/dL (7-20); CARBON DIOXIDE 36 mmol/L (22-30); CHLORIDE 89 mmol/L (98-107); CREATININE RESULT 0.73 mg/dL (0.52-1.25); GLUCOSE 80 mg/dL (75-110); MAGNESIUM 1.9 mg/dL (1.6-2.3); SODIUM 132.9 mmol/L (137-145)
[2017-02-11 06:51] LABS: THYROID STIMULATING HORMONE 0.6 uIU/mL (0.47-4.68)
[2017-02-11 06:58] LABS: POTASSIUM 2.9 mmol/L (3.6-5.0)
[2017-02-11] MEDS: ENOXAPARIN SODIUM INJ 40 MG/0.4 ML DISP.SYRIN SUBCUT SCH (08:02)
[2017-02-11] MEDS ORDERED: POTASSIUM CHLORIDE 20 MEQ/15 ML UDCUP PO SCH (09:00)
[2017-02-11] MEDS: PANTOPRAZOLE SODIUM 40 MG VIAL IV SCH ×2 (09:37→22:57)
[2017-02-11] MEDS ORDERED: POTASSI CL 40 MEQ/NS 1L 1,000 ML IV PRN (09:38)
[2017-02-11] MEDS ORDERED: POTASSIUM CHLORIDE 10 MEQ TABLET.SA PO ONE ×2 (10:15→11:15)
[2017-02-11 12:32] LABS: CREATINE KINASE MB 0.84 ng/mL (<4.55); TROPONIN I 0.048 ng/mL
[2017-02-11 16:48] LABS: HEMATOCRIT 34.1 % (36.0-47.0); HGB HCT DIFFERENCE 1.3; MEAN CORPUSCULAR HEMOGLOBIN 33.6 pg (27.0-33.4); MEAN CORPUSCULAR HGB CONC 34.5 g/dL (32.0-36.0); MEAN CORPUSCULAR VOLUME 97 fl (80-97); RED BLOOD COUNT 3.51 10^6/uL (3.72-5.28); RED CELL DISTRIBUTION WIDTH 12.8 % (11.5-14.0); WHITE BLOOD COUNT 16.5 10^3/uL (4.0-10.5)
[2017-02-11 16:56] LABS: ANION GAP 10 (5-19); BLOOD UREA NITROGEN 10 mg/dL (7-20); CALCIUM 8.9 mg/dL (8.4-10.2); CARBON DIOXIDE 32 mmol/L (22-30); CHLORIDE 91 mmol/L (98-107); GLUCOSE 144 mg/dL (75-110); POTASSIUM 3.4 mmol/L (3.6-5.0); SODIUM 133.3 mmol/L (137-145)
[2017-02-11 17:09] LABS: BASOPHILS % (MANUAL) 0 % (0-2); EOSINOPHILS % (MANUAL) 5 % (0-6); LYMPHOCYTES % (MANUAL) 20 % (13-45); TOTAL CELLS COUNTED 100
[2017-02-11 17:10] LABS: HEMOGLOBIN 11.8 g/dL (12.0-15.5); RBC MORPHOLOGY COMMENT NORMO-CYTIC/CHROMIC
[2017-02-11 18:16] LABS: URINE BARBITURATES SCREEN NEGATIVE; URINE METHADONE SCREEN NEGATIVE; URINE OPIATES LOW NEGATIVE; URINE PHENCYCLIDINE SCREEN NEGATIVE
[2017-02-11] MEDS: NORMAL SALINE 1000 ML 1,000 ML IV PRN (22:57)
[2017-02-12 03:50] VITALS: BP 133/87
[2017-02-12] MEDS: NORMAL SALINE 1000 ML 1,000 ML IV PRN (03:51)
[2017-02-12 06:52] LABS: HEMATOCRIT 33.9 % (36.0-47.0); HEMOGLOBIN 11.6 g/dL (12.0-15.5); HGB HCT DIFFERENCE 0.9; MEAN CORPUSCULAR HEMOGLOBIN 33.5 pg (27.0-33.4); MEAN CORPUSCULAR HGB CONC 34.2 g/dL (32.0-36.0); MEAN CORPUSCULAR VOLUME 98 fl (80-97); RED BLOOD COUNT 3.47 10^6/uL (3.72-5.28); RED CELL DISTRIBUTION WIDTH 12.8 % (11.5-14.0); WHITE BLOOD COUNT 14.9 10^3/uL (4.0-10.5)
[2017-02-12 07:04] LABS: ANION GAP 11 (5-19); BLOOD UREA NITROGEN 7 mg/dL (7-20); CALCIUM 8.3 mg/dL (8.4-10.2); CARBON DIOXIDE 29 mmol/L (22-30); CHLORIDE 94 mmol/L (98-107); CREATINE KINASE 494 U/L (30-135); CREATININE RESULT 0.61 mg/dL (0.52-1.25); GLUCOSE 119 mg/dL (75-110); SODIUM 134.1 mmol/L (137-145)
[2017-02-12 07:23] LABS: BASOPHILS % (MANUAL) 1 % (0-2); EOSINOPHILS % (MANUAL) 2 % (0-6); LYMPHOCYTES % (MANUAL) 30 % (13-45); RBC MORPHOLOGY COMMENT NORMO-CYTIC/CHROMIC; TOTAL CELLS COUNTED 100
[2017-02-12 07:26] LABS: POTASSIUM 2.9 mmol/L (3.6-5.0)
[2017-02-12] MEDS: ENOXAPARIN SODIUM INJ 40 MG/0.4 ML DISP.SYRIN SUBCUT SCH (08:56)
--- NOTE | 2017-02-12 08:56 | PDOC DISCHARGE SUMMARY ---
General - Admit/Disc Date/PCP Admission Date/Primary Care Provider: 02/10/17 11:06 Referred to [facility] Discharge Date: 02/12/17 - Discharge Diagnosis (1) Cannabis abuse Is this a current diagnosis for this admission?: Yes (2) Hypokalemia Is this a current diagnosis for this admission?: Yes (3) Hyponatremia Is this a current diagnosis for this admission?: Yes (5) Leukocytosis Is this a current diagnosis for this admission?: Yes (6) Abnormal EKG Is this a current diagnosis for this admission?: YesSummary: ST-T changes on inferior leads Likely to be secondary to electrolyte imbalance Patient's troponins were in intermediate range She denied use of cocaine and never had chest pains 02/11/17 02/11/17 02/11/17 11:20 17:35 19:20 Troponin I 0.048 0.050 Urine Cocaine Screen NEGATIVE 02/12/17 01:02 Troponin I 0.058 Urine Cocaine Screen An echocardiogram should be performed as an outpatient (7) Rhabdomyolysis Is this a current diagnosis for this admission?: YesSummary: 02/11/17 02/11/17 02/12/17 11:20 13:11 05:58 Creatine Kinase 872 H 744 H 494 H Was treated with intravenous fluids and CPK did come down during hospital stay (8) Metabolic alkalosis Is this a current diagnosis for this admission?: YesSummary: Secondary to severe dehydration and volume contraction w 02/10/17 02/12/17 04:50 05:58 Sodium 121.3 L 134.1 L Potassium 2.1 L* 2.9 L* Chloride 54 L 94 L Carbon Dioxide 53 H* 29 as improved at discharge - Additional Information Resuscitation Status: Full Code Discharge Diet: As Tolerated Home Medications: Potassium Chloride [K-Tab ER] 20 meq PO BID #20 tablet.er 02/12/17 History of Present Illness Patient complains of: vomiting History of Present Illness: TONY CANALES is a 26 year old female that comes emergency department for chief complaint of nausea and vomiting with occasional loose stools for the past 3 days. She states she has vomited nonstop , over 20 times a day. Patient has had episodes like this in the past, has a known history of marijuana use. Patient denies blood in vomit or stool. She denies fever. She states she got lightheaded and passed out in the kitchen earlier today. She denies head pain, denies back pain, denies any areas of pain. She states she is just nauseated. She denies any particular area of abdominal pain. She states she last smoked marijuana on Monday. She denies any daily medications or surgeries. She denies any other past medical history. Hospital Course Hospital Course: Patient was admitted to a with his history of intractable vomiting and hypokalemia Patient did use cannabis prior to the visit and had prior admission with cyclic vomiting Patient had severe hypokalemia that was somewhat replenished Patient did not want to stay any longer for correction of hypokalemia treated by mouth meds Patient also has severe contraction alkalosis secondary to vomiting The metabolic alkalosis corrected at discharge CPK was elevated initially and was on the downward trend during the hospital stay with IV fluid She was asymptomatic at discharge Physical Exam Vital Signs: Temp Pulse Resp BP Pulse Ox 98.5 F 79 16 133/87 H 100 02/12/17 03:49 02/12/17 07:00 02/12/17 03:49 02/12/17 03:49 02/12/17 03:49 Intake & Output 02/11/17 02/12/17 02/13/17 00:59 00:59 00:59 Intake Total 2165 4649 3134 Output Total 6 Balance 2159 4649 3134 Weight 76.5 kg 78.6 kg 79 kg General appearance: PRESENT: no acute distress, well-developed, well-nourished Head exam: PRESENT: atraumatic, normocephalic Eye exam: PRESENT: conjunctiva pink, EOMI, PERRLA. ABSENT: scleral icterus Ear exam: PRESENT: normal external ear exam Mouth exam: PRESENT: moist, tongue midline Neck exam: ABSENT: carotid bruit, JVD, lymphadenopathy, thyromegaly Respiratory exam: PRESENT: clear to auscultation jef. ABSENT: rales, rhonchi, wheezes Cardiovascular exam: PRESENT: RRR. ABSENT: diastolic murmur, rubs, systolic murmur Pulses: PRESENT: normal dorsalis pedis pul Vascular exam: PRESENT: normal capillary refill GI/Abdominal exam: PRESENT: normal bowel sounds, soft. ABSENT: distended, guarding, mass, organolmegaly, rebound, tenderness Rectal exam: PRESENT: deferred Extremities exam: PRESENT: full ROM. ABSENT: calf tenderness, clubbing, pedal edema Neurological exam: PRESENT: alert, awake, oriented to person, oriented to place , oriented to time, oriented to situation, CN II-XII grossly intact. ABSENT: motor sensory deficit Psychiatric exam: PRESENT: appropriate affect, normal mood. ABSENT: homicidal ideation, suicidal ideation Skin exam: PRESENT: dry, intact, warm. ABSENT: cyanosis, rash Results Laboratory Results: 02/12/17 05:58 02/12/17 05:58 02/11/17 02/11/17 02/12/17 16:20 16:20 05:58 WBC 16.5 H 14.9 H RBC 3.51 L 3.47 L Hgb 11.8 L D 11.6 L Hct 34.1 L 33.9 L MCV 97 98 H MCH 33.6 H 33.5 H MCHC 34.5 34.2 RDW 12.8 12.8 Plt Count 220 228 Seg Neutrophils % Not Reportable Not Reportable Lymphocytes % Not Reportable Not Reportable Monocytes % Not Reportable Not Reportable Eosinophils % Not Reportable Not Reportable Basophils % Not Reportable Not Reportable Absolute Neutrophils Not Reportable Not Reportable Absolute Lymphocytes Not Reportable Not Reportable Absolute Monocytes Not Reportable Not Reportable Absolute Eosinophils Not Reportable Not Reportable Absolute Basophils Not Reportable Not Reportable Sodium 133.3 L Potassium 3.4 L Chloride 91 L Carbon Dioxide 32 H Anion Gap 10 BUN 10 Creatinine 0.70 Est GFR ( Amer) > 60 Est GFR (Non-Af Amer) > 60 Glucose 144 H Calcium 8.9 02/12/17 05:58 WBC RBC Hgb Hct MCV MCH MCHC RDW Plt Count Seg Neutrophils % Lymphocytes % Monocytes % Eosinophils % Basophils % Absolute Neutrophils Absolute Lymphocytes Absolute Monocytes Absolute Eosinophils Absolute Basophils Sodium 134.1 L Potassium 2.9 L* Chloride 94 L Carbon Dioxide 29 Anion Gap 11 BUN 7 Creatinine 0.61 Est GFR ( Amer) > 60 Est GFR (Non-Af Amer) > 60 Glucose 119 H Calcium 8.3 L 02/11/17 02/11/17 02/11/17 11:20 11:20 13:11 Creatine Kinase 872 H 744 H CK-MB (CK-2) 0.84 Troponin I 0.048 02/11/17 02/11/17 02/12/17 19:20 19:20 01:02 Creatine Kinase 677 H CK-MB (CK-2) Troponin I 0.050 0.058 02/12/17 02/12/17 01:02 05:58 Creatine Kinase 583 H 494 H CK-MB (CK-2) Troponin I Labs- Entire Visit 02/10/17 02/10/17 02/10/17 04:50 04:50 04:50 WBC 27.3 H RBC 4.66 Hgb 15.7 H Hct 43.7 MCV 94 MCH 33.6 H MCHC 35.9 RDW 12.9 Plt Count 292 Total Counted 100 Seg Neutrophils % Not Reportable Seg Neuts % (Manual) 78 Band Neutrophils % 1 L Lymphocytes % Not Reportable Lymphocytes % (Manual) 11 L Atypical Lymphs % 3 Monocytes % Not Reportable Monocytes % (Manual) 7 Eosinophils % Not Reportable Eosinophils % (Manual) 0 Basophils % Not Reportable Basophils % (Manual) 0 Absolute Neutrophils Not Reportable Abs Neuts (Manual) 21.6 H Absolute Lymphocytes Not Reportable Abs Lymphs (Manual) 3.8 Absolute Monocytes Not Reportable Abs Monocytes (Manual) 1.9 H Absolute Eosinophils Not Reportable Absolute Eos (Manual) 0.0 Absolute Basophils Not Reportable Abs Basophils (Manual) 0.0 Toxic Vacuolation PRESENT Platelet Comment ADEQUATE RBC Morph Comment NORMO-CYTIC/CHROMIC Sodium 121.3 L Potassium 2.1 L* Chloride 54 L Carbon Dioxide 53 H* Anion Gap 14 BUN 36 H Creatinine 0.96 Est GFR ( Amer) > 60 Est GFR (Non-Af Amer) > 60 Glucose 143 H Calcium 9.7 Magnesium Total Bilirubin 1.4 H Direct Bilirubin 0.4 Indirect Bilirubin Not Reportable Neonat Total Bilirubin Not Reportable AST 197 H ALT 82 H Alkaline Phosphatase 104 Creatine Kinase CK-MB (CK-2) Troponin I Total Protein 8.3 H Albumin 4.7 Lipase 87.1 TSH Free T4 Serum HCG, Qual NEGATIVE Urine Color Urine Appearance Urine pH Ur Specific [place] Urine Protein Urine Glucose (UA) Urine Ketones Urine Blood Urine Nitrite Urine Bilirubin Urine Urobilinogen Ur Leukocyte Esterase Urine WBC (Auto) Urine RBC (Auto) Urine Bacteria (Auto) Squamous Epi Cells Auto Urine Mucus (Auto) Urine Ascorbic Acid Urine Opiates Screen Urine Methadone Screen Ur Barbiturates Screen Ur Phencyclidine Scrn Ur Amphetamines Screen U Benzodiazepines Scrn Urine Cocaine Screen U Marijuana (THC) Screen 02/10/17 02/10/17 02/10/17 04:50 04:50 04:50 WBC RBC Hgb Hct MCV MCH MCHC RDW Plt Count Total Counted Seg Neutrophils % Seg Neuts % (Manual) Band Neutrophils % Lymphocytes % Lymphocytes % (Manual) Atypical Lymphs % Monocytes % Monocytes % (Manual) Eosinophils % Eosinophils % (Manual) Basophils % Basophils % (Manual) Absolute Neutrophils Abs Neuts (Manual) Absolute Lymphocytes Abs Lymphs (Manual) Absolute Monocytes Abs Monocytes (Manual) Absolute Eosinophils Absolute Eos (Manual) Absolute Basophils Abs Basophils (Manual) Toxic Vacuolation Platelet Comment RBC Morph Comment Sodium Potassium Chloride Carbon Dioxide Anion Gap BUN Creatinine Est GFR ( Amer) Est GFR (Non-Af Amer) Glucose Calcium Magnesium 2.8 H Total Bilirubin Direct Bilirubin Indirect Bilirubin Neonat Total Bilirubin AST ALT Alkaline Phosphatase Creatine Kinase CK-MB (CK-2) Troponin I Total Protein Albumin Lipase TSH Free T4 Serum HCG, Qual Urine Color YELLOW Urine Appearance SLIGHTLY-CLOUDY Urine pH 6.0 Ur Specific [place] 1.023 Urine Protein >=500 H Urine Glucose (UA) 50 H Urine Ketones NEGATIVE Urine Blood MODERATE H Urine Nitrite NEGATIVE Urine Bilirubin NEGATIVE Urine Urobilinogen 4.0 H Ur Leukocyte Esterase NEGATIVE Urine WBC (Auto) 8 Urine RBC (Auto) 6 Urine Bacteria (Auto) TRACE Squamous Epi Cells Auto 2 Urine Mucus (Auto) RARE Urine Ascorbic Acid NEGATIVE Urine Opiates Screen NEGATIVE Urine Methadone Screen NEGATIVE Ur Barbiturates Screen NEGATIVE Ur Phencyclidine Scrn NEGATIVE Ur Amphetamines Screen NEGATIVE U Benzodiazepines Scrn NEGATIVE Urine Cocaine Screen NEGATIVE U Marijuana (THC) Screen UNCONFIRMED POSITIVE 02/10/17 02/11/17 02/11/17 16:06 04:00 04:00 WBC RBC Hgb Hct MCV MCH MCHC RDW Plt Count Total Counted Seg Neutrophils % Seg Neuts % (Manual) Band Neutrophils % Lymphocytes % Lymphocytes % (Manual) Atypical Lymphs % Monocytes % Monocytes % (Manual) Eosinophils % Eosinophils % (Manual) Basophils % Basophils % (Manual) Absolute Neutrophils Abs Neuts (Manual) Absolute Lymphocytes Abs Lymphs (Manual) Absolute Monocytes Abs Monocytes (Manual) Absolute Eosinophils Absolute Eos (Manual) Absolute Basophils Abs Basophils (Manual) Toxic Vacuolation Platelet Comment RBC Morph Comment Sodium 128.0 L 132.9 L Potassium 2.7 L* 2.9 L* Chloride 76 L 89 L Carbon Dioxide 44 H* 36 H Anion Gap 8 8 BUN 19 10 Creatinine 0.90 0.73 Est GFR ( Amer) > 60 > 60 Est GFR (Non-Af Amer) > 60 > 60 Glucose 92 80 Calcium 8.6 8.0 L Magnesium 2.3 1.9 Total Bilirubin Direct Bilirubin Indirect Bilirubin Neonat Total Bilirubin AST ALT Alkaline Phosphatase Creatine Kinase CK-MB (CK-2) Troponin I Total Protein Albumin Lipase TSH 0.60 Free T4 1.32 Serum HCG, Qual Urine Color Urine Appearance Urine pH Ur Specific [place] Urine Protein Urine Glucose (UA) Urine Ketones Urine Blood Urine Nitrite Urine Bilirubin Urine Urobilinogen Ur Leukocyte Esterase Urine WBC (Auto) Urine RBC (Auto) Urine Bacteria (Auto) Squamous Epi Cells Auto Urine Mucus (Auto) Urine Ascorbic Acid Urine Opiates Screen Urine Methadone Screen Ur Barbiturates Screen Ur Phencyclidine Scrn Ur Amphetamines Screen U Benzodiazepines Scrn Urine Cocaine Screen U Marijuana (THC) Screen 02/11/17 02/11/17 02/11/17 11:20 11:20 13:11 WBC RBC Hgb Hct MCV MCH MCHC RDW Plt Count Total Counted Seg Neutrophils % Seg Neuts % (Manual) Band Neutrophils % Lymphocytes % Lymphocytes % (Manual) Atypical Lymphs % Monocytes % Monocytes % (Manual) Eosinophils % Eosinophils % (Manual) Basophils % Basophils % (Manual) Absolute Neutrophils Abs Neuts (Manual) Absolute Lymphocytes Abs Lymphs (Manual) Absolute Monocytes Abs Monocytes (Manual) Absolute Eosinophils Absolute Eos (Manual) Absolute Basophils Abs Basophils (Manual) Toxic Vacuolation Platelet Comment RBC Morph Comment Sodium Potassium Chloride Carbon Dioxide Anion Gap BUN Creatinine Est GFR ( Amer) Est GFR (Non-Af Amer) Glucose Calcium Magnesium Total Bilirubin Direct Bilirubin Indirect Bilirubin Neonat Total Bilirubin AST ALT Alkaline Phosphatase Creatine Kinase 872 H 744 H CK-MB (CK-2) 0.84 Troponin I 0.048 Total Protein Albumin Lipase TSH Free T4 Serum HCG, Qual Urine Color Urine Appearance Urine pH Ur Specific [place] Urine Protein Urine Glucose (UA) Urine Ketones Urine Blood Urine Nitrite Urine Bilirubin Urine Urobilinogen Ur Leukocyte Esterase Urine WBC (Auto) Urine RBC (Auto) Urine Bacteria (Auto) Squamous Epi Cells Auto Urine Mucus (Auto) Urine Ascorbic Acid Urine Opiates Screen Urine Methadone Screen Ur Barbiturates Screen Ur Phencyclidine Scrn Ur Amphetamines Screen U Benzodiazepines Scrn Urine Cocaine Screen U Marijuana (THC) Screen 02/11/17 02/11/17 02/11/17 16:20 16:20 17:35 WBC 16.5 H RBC 3.51 L Hgb 11.8 L D Hct 34.1 L MCV 97 MCH 33.6 H MCHC 34.5 RDW 12.8 Plt Count 220 Total Counted 100 Seg Neutrophils % Not Reportable Seg Neuts % (Manual) 70 Band Neutrophils % Lymphocytes % Not Reportable Lymphocytes % (Manual) 20 Atypical Lymphs % Monocytes % Not Reportable Monocytes % (Manual) 5 Eosinophils % Not Reportable Eosinophils % (Manual) 5 Basophils % Not Reportable Basophils % (Manual) 0 Absolute Neutrophils Not Reportable Abs Neuts (Manual) 11.6 H Absolute Lymphocytes Not Reportable Abs Lymphs (Manual) 3.3 Absolute Monocytes Not Reportable Abs Monocytes (Manual) 0.8 Absolute Eosinophils Not Reportable Absolute Eos (Manual) 0.8 H Absolute Basophils Not Reportable Abs Basophils (Manual) 0.0 Toxic Vacuolation Platelet Comment ADEQUATE RBC Morph Comment NORMO-CYTIC/CHROMIC Sodium 133.3 L Potassium 3.4 L Chloride 91 L Carbon Dioxide 32 H Anion Gap 10 BUN 10 Creatinine 0.70 Est GFR ( Amer) > 60 Est GFR (Non-Af Amer) > 60 Glucose 144 H Calcium 8.9 Magnesium Total Bilirubin Direct Bilirubin Indirect Bilirubin Neonat Total Bilirubin AST ALT Alkaline Phosphatase Creatine Kinase CK-MB (CK-2) Troponin I Total Protein Albumin Lipase TSH Free T4 Serum HCG, Qual Urine Color Urine Appearance Urine pH Ur Specific [place] Urine Protein Urine Glucose (UA) Urine Ketones Urine Blood Urine Nitrite Urine Bilirubin Urine Urobilinogen Ur Leukocyte Esterase Urine WBC (Auto) Urine RBC (Auto) Urine Bacteria (Auto) Squamous Epi Cells Auto Urine Mucus (Auto) Urine Ascorbic Acid Urine Opiates Screen NEGATIVE Urine Methadone Screen NEGATIVE Ur Barbiturates Screen NEGATIVE Ur Phencyclidine Scrn NEGATIVE Ur Amphetamines Screen NEGATIVE U Benzodiazepines Scrn NEGATIVE Urine Cocaine Screen NEGATIVE U Marijuana (THC) Screen UNCONFIRMED POSITIVE 02/11/17 02/11/17 02/12/17 19:20 19:20 01:02 WBC RBC Hgb Hct MCV MCH MCHC RDW Plt Count Total Counted Seg Neutrophils % Seg Neuts % (Manual) Band Neutrophils % Lymphocytes % Lymphocytes % (Manual) Atypical Lymphs % Monocytes % Monocytes % (Manual) Eosinophils % Eosinophils % (Manual) Basophils % Basophils % (Manual) Absolute Neutrophils Abs Neuts (Manual) Absolute Lymphocytes Abs Lymphs (Manual) Absolute Monocytes Abs Monocytes (Manual) Absolute Eosinophils Absolute Eos (Manual) Absolute Basophils Abs Basophils (Manual) Toxic Vacuolation Platelet Comment RBC Morph Comment Sodium Potassium Chloride Carbon Dioxide Anion Gap BUN Creatinine Est GFR ( Amer) Est GFR (Non-Af Amer) Glucose Calcium Magnesium Total Bilirubin Direct Bilirubin Indirect Bilirubin Neonat Total Bilirubin AST ALT Alkaline Phosphatase Creatine Kinase 677 H CK-MB (CK-2) Troponin I 0.050 0.058 Total Protein Albumin Lipase TSH Free T4 Serum HCG, Qual Urine Color Urine Appearance Urine pH Ur Specific [place] Urine Protein Urine Glucose (UA) Urine Ketones Urine Blood Urine Nitrite Urine Bilirubin Urine Urobilinogen Ur Leukocyte Esterase Urine WBC (Auto) Urine RBC (Auto) Urine Bacteria (Auto) Squamous Epi Cells Auto Urine Mucus (Auto) Urine Ascorbic Acid Urine Opiates Screen Urine Methadone Screen Ur Barbiturates Screen Ur Phencyclidine Scrn Ur Amphetamines Screen U Benzodiazepines Scrn Urine Cocaine Screen U Marijuana (THC) Screen 02/12/17 02/12/17 02/12/17 01:02 05:58 05:58 WBC 14.9 H RBC 3.47 L Hgb 11.6 L Hct 33.9 L MCV 98 H MCH 33.5 H MCHC 34.2 RDW 12.8 Plt Count 228 Total Counted 100 Seg Neutrophils % Not Reportable Seg Neuts % (Manual) 60 Band Neutrophils % Lymphocytes % Not Reportable Lymphocytes % (Manual) 30 Atypical Lymphs % Monocytes % Not Reportable Monocytes % (Manual) 7 Eosinophils % Not Reportable Eosinophils % (Manual) 2 Basophils % Not Reportable Basophils % (Manual) 1 Absolute Neutrophils Not Reportable Abs Neuts (Manual) 8.9 H Absolute Lymphocytes Not Reportable Abs Lymphs (Manual) 4.5 Absolute Monocytes Not Reportable Abs Monocytes (Manual) 1.0 Absolute Eosinophils Not Reportable Absolute Eos (Manual) 0.3 Absolute Basophils Not Reportable Abs Basophils (Manual) 0.1 Toxic Vacuolation Platelet Comment ADEQUATE RBC Morph Comment NORMO-CYTIC/CHROMIC Sodium 134.1 L Potassium 2.9 L* Chloride 94 L Carbon Dioxide 29 Anion Gap 11 BUN 7 Creatinine 0.61 Est GFR ( Amer) > 60 Est GFR (Non-Af Amer) > 60 Glucose 119 H Calcium 8.3 L Magnesium Total Bilirubin Direct Bilirubin Indirect Bilirubin Neonat Total Bilirubin AST ALT Alkaline Phosphatase Creatine Kinase 583 H 494 H CK-MB (CK-2) Troponin I Total Protein Albumin Lipase TSH Free T4 Serum HCG, Qual Urine Color Urine Appearance Urine pH Ur Specific [place] Urine Protein Urine Glucose (UA) Urine Ketones Urine Blood Urine Nitrite Urine Bilirubin Urine Urobilinogen Ur Leukocyte Esterase Urine WBC (Auto) Urine RBC (Auto) Urine Bacteria (Auto) Squamous Epi Cells Auto Urine Mucus (Auto) Urine Ascorbic Acid Urine Opiates Screen Urine Methadone Screen Ur Barbiturates Screen Ur Phencyclidine Scrn Ur Amphetamines Screen U Benzodiazepines Scrn Urine Cocaine Screen U Marijuana (THC) Screen Plan Discharge Plan: [facility] with repeat labs
[2017-02-12] MEDS ORDERED: POTASSIUM CHLORIDE 10 MEQ TABLET.SA PO ONE (09:00)
== END 2017-02-12 11:46 | disposition home or self-care (01) | DRG 641 ==
LOC: ER 01:47 → UNDOADMIN 07:59 → EH 07:59 → 4N 10:43
PROVIDERS: ADMIT Emergency Medicine; ATTEND Emergency Medicine
DX: E87.6 Hypokalemia (principal); M62.82 Rhabdomyolysis; R65.10 Systemic inflammatory response syndrome (SIRS) of non-infectious origin without acute organ dysfunction; E87.1 Hypo-osmolality and hyponatremia; E86.0 Dehydration; D72.829 Elevated white blood cell count, unspecified; F12.10 Cannabis abuse, uncomplicated; R11.2 Nausea with vomiting, unspecified; F17.200 Nicotine dependence, unspecified, uncomplicated; E87.3 Alkalosis; R94.31 Abnormal electrocardiogram [ECG] [EKG]; K21.9 Gastro-esophageal reflux disease without esophagitis
CPT/HCPCS: 36415; 80048; 80053; 80307; 81001; 82550; 82553; 83690; 83735; 84439; 84443; 84484; 84703; 85025; 93005; 93010; 96361; 96365; 99285; J2405; J3480; J3490; J7030; S0164

== ENCOUNTER 2017-03-02 10:03 | Observation (INO) | payer MEDICAID ==
[2017-03-02] MEDS ORDERED: ONDANSETRON HCL INJ/PF 4 MG/2 ML SDV ONE (12:53)
[2017-03-02] MEDS: ONDANSETRON HCL INJ/PF 4 MG/2 ML SDV IV PRN ×2 (13:06→17:21)
[2017-03-02] MEDS ORDERED: NORMAL SALINE 1000 ML 1,000 ML IV PRN (13:06)
[2017-03-02] MEDS ORDERED: PROMETHAZINE HCL INJ 25 MG/1 ML VIAL IV PRN (13:07)
[2017-03-02 13:37] LABS: HEMATOCRIT 44.5 % (36.0-47.0); HEMOGLOBIN 15.2 g/dL (12.0-15.5); HGB HCT DIFFERENCE 1.1; MEAN CORPUSCULAR HEMOGLOBIN 33.5 pg (27.0-33.4); MEAN CORPUSCULAR HGB CONC 34.2 g/dL (32.0-36.0); MEAN CORPUSCULAR VOLUME 98 fl (80-97); RED BLOOD COUNT 4.54 10^6/uL (3.72-5.28); RED CELL DISTRIBUTION WIDTH 13.3 % (11.5-14.0); WHITE BLOOD COUNT 17.4 10^3/uL (4.0-10.5)
[2017-03-02 13:56] LABS: ALANINE AMINOTRANSFERASE 33 U/L (9-52); ALBUMIN 5.4 g/dL (3.5-5.0); ALKALINE PHOSPHATASE 105 U/L (38-126); ASPARTATE AMINO TRANSFERASE 33 U/L (14-36); BILIRUBIN,DIRECT 0.4 mg/dL (0.0-0.4); BILIRUBIN,TOTAL 0.9 mg/dL (0.2-1.3); BLOOD UREA NITROGEN 24 mg/dL (7-20); CALCIUM 10.8 mg/dL (8.4-10.2); CHLORIDE 84 mmol/L (98-107); CREATININE RESULT 0.98 mg/dL (0.52-1.25); GLUCOSE 132 mg/dL (75-110); TOTAL PROTEIN 9.2 g/dL (6.3-8.2)
[2017-03-02 14:08] LABS: CARBON DIOXIDE 35 mmol/L (22-30); SODIUM 140.3 mmol/L (137-145)
[2017-03-02 14:13] LABS: ANION GAP 21 (5-19)
[2017-03-02 14:14] LABS: POTASSIUM 2.9 mmol/L (3.6-5.0)
[2017-03-02] MEDS: POTASSIUM CHLORIDE 20 MEQ/50 ML RTU IV SCH ×4 (15:25→23:00)
[2017-03-02 18:08] LABS: APPEARANCE,URINE SLIGHTLY-CLOUDY; BILIRUBIN,URINE NEGATIVE (NEGATIVE); GLUCOSE, URINE NEGATIVE (NEGATIVE); KETONES,URINE 20 mg/dL (NEGATIVE); LEUKOCYTE ESTERASE,URINE NEGATIVE (NEGATIVE); NITRITE,URINE NEGATIVE (NEGATIVE); PROTEIN,URINE >=500 mg/dL (NEGATIVE); URINE SPECIFIC GRAVITY 1.023
[2017-03-02 18:29] LABS: URINE BARBITURATES SCREEN NEGATIVE; URINE METHADONE SCREEN NEGATIVE; URINE OPIATES LOW NEGATIVE; URINE PHENCYCLIDINE SCREEN NEGATIVE
[2017-03-03] MEDS: ONDANSETRON HCL INJ/PF 4 MG/2 ML SDV IV PRN (07:37)
[2017-03-03 08:21] LABS: ANION GAP 14 (5-19); BLOOD UREA NITROGEN 10 mg/dL (7-20); CALCIUM 9.8 mg/dL (8.4-10.2); CARBON DIOXIDE 31 mmol/L (22-30); CHLORIDE 93 mmol/L (98-107); CREATININE RESULT 0.74 mg/dL (0.52-1.25); GLUCOSE 110 mg/dL (75-110); POTASSIUM 3.1 mmol/L (3.6-5.0); SODIUM 137.9 mmol/L (137-145)
[2017-03-03] MEDS ORDERED: LANSOPRAZOLE 30 MG TAB.RAP.DR PO ONE (10:30)
[2017-03-03 19:37] LABS: ALANINE AMINOTRANSFERASE 25 U/L (9-52); ALBUMIN 4.1 g/dL (3.5-5.0); ALKALINE PHOSPHATASE 71 U/L (38-126); ANION GAP 13 (5-19); ASPARTATE AMINO TRANSFERASE 27 U/L (14-36); BILIRUBIN,DIRECT 0.3 mg/dL (0.0-0.4); BILIRUBIN,TOTAL 0.7 mg/dL (0.2-1.3); BLOOD UREA NITROGEN 9 mg/dL (7-20); CALCIUM 9.5 mg/dL (8.4-10.2); CARBON DIOXIDE 26 mmol/L (22-30); CHLORIDE 98 mmol/L (98-107); GLUCOSE 111 mg/dL (75-110); POTASSIUM 3.3 mmol/L (3.6-5.0); SODIUM 136.8 mmol/L (137-145); TOTAL PROTEIN 7.1 g/dL (6.3-8.2)
--- NOTE | 2017-03-03 19:52 | PDOC H&P ---
History of Present Illness Admission Date/PCP: 03/02/17 10:03 EMILEE OTERO MD History of Present Illness: TONY CANALES is a 26 year old female she came to the office with complaint of vomiting associated abdominal pain, in the office she had many episodes of vomiting, the vomitus was clear to recently eaten food because of the persistent vomiting she was admitted directly from the office to the office for evaluation and management of her symptoms the blood work revealed severe hypokalemia due to persistent vomiting. There is no diarrhea. Urine drug screen was positive for marijuana Past Medical History GI Medical History: Reports: Gastroesophageal Reflux Disease Past Surgical History Past Surgical History: Reports: Section - x1 Social History Smoking Status: Former Smoker Cigarettes Packs Per Day: 1 Last Time Smoked: 02/28/2017 Frequency of Alcohol Use: None Hx Recreational Drug Use: No Drugs: Marijuana Hx Prescription Drug Abuse: No Family History Family History: Reviewed & Not Pertinent, Other - Denied by the patient Parental Family History Reviewed: Yes Children Family History Reviewed: Yes Sibling(s) Family History Reviewed.: Yes Medication/Allergy Home Medications: Naproxen 500 mg PO Q12HP PRN 03/02/17 Potassium Chloride [K-Tab ER] 20 meq PO BID 03/02/17 Allergies/Adverse Reactions: No Known Allergies Allergy (Verified 02/10/17 05:49) Review of Systems Constitutional: ABSENT: chills, fever(s), headache(s), weight gain, weight loss Eyes: ABSENT: visual disturbances Ears: ABSENT: hearing changes Cardiovascular: ABSENT: chest pain, dyspnea on exertion, edema, orthropnea, palpitations Respiratory: ABSENT: cough, hemoptysis Gastrointestinal: PRESENT: abdominal pain, vomiting Genitourinary: ABSENT: dysuria, hematuria Musculoskeletal: PRESENT: back pain Integumentary: ABSENT: rash, wounds Neurological: ABSENT: abnormal gait, abnormal speech, confusion, dizziness, focal weakness, syncope Psychiatric: ABSENT: anxiety, depression, homidical ideation, suicidal ideation Endocrine: ABSENT: cold intolerance, heat intolerance, menstrual abnormalities, polydipsia, polyuria Hematologic/Lymphatic: ABSENT: easy bleeding, easy bruising, lymphadenopathy Physical Exam Vital Signs: Temp Pulse Resp BP Pulse Ox 98.7 F 82 12 122/66 100 03/03/17 15:44 03/03/17 19:32 03/03/17 15:44 03/03/17 15:44 03/03/17 15:44 Intake & Output 03/02/17 03/03/17 03/04/17 06:59 06:59 06:59 Intake Total 3353 905 Balance 3353 905 Weight 74.4 kg General appearance: PRESENT: mild distress Head exam: PRESENT: atraumatic, normocephalic Eye exam: PRESENT: conjunctiva pink, EOMI, PERRLA Ear exam: PRESENT: normal external ear exam Mouth exam: PRESENT: dry mucosa, tongue midline Neck exam: PRESENT: full ROM Respiratory exam: PRESENT: clear to auscultation jef Cardiovascular exam: PRESENT: RRR, +S1, +S2 GI/Abdominal exam: PRESENT: normal bowel sounds, soft, tenderness - In the epigastrium Rectal exam: PRESENT: deferred Neurological exam: PRESENT: alert, awake, oriented to person, oriented to place , oriented to time, oriented to situation, CN II-XII grossly intact. ABSENT: motor sensory deficit Psychiatric exam: PRESENT: appropriate affect, normal mood Skin exam: PRESENT: dry, intact, warm Results Laboratory Results: 03/03/17 07:45 Sodium 137.9 Potassium 3.1 L Chloride 93 L Carbon Dioxide 31 H Anion Gap 14 BUN 10 Creatinine 0.74 Est GFR ( Amer) > 60 Est GFR (Non-Af Amer) > 60 Glucose 110 Calcium 9.8 Impressions: Abdomen/Pelvis CT 03/02/17 12:42 IMPRESSION: NO SIGNIFICANT OR ACUTE PROCESS IN THE ABDOMEN OR PELVIS. Chest X-Ray 03/02/17 12:42 IMPRESSION: NO ACUTE RADIOGRAPHIC FINDING IN THE CHEST. Assessment & Plan - Diagnosis (1) Intractable vomiting Qualifiers: Vomiting type: unspecified Nausea presence: with nausea Qualified Code(s): R11.2 - Nausea with vomiting, unspecified Is this a current diagnosis for this admission?: YesPlan: She was admitted because of vomiting and dehydration, this is probably marijuana related. (2) Cannabis abuse Is this a current diagnosis for this admission?: Yes (3) Hypokalemia Is this a current diagnosis for this admission?: YesPlan: Hypokalemia is from GI losses from vomiting this to be replenish
--- NOTE | 2017-03-03 20:01 | PDOC DISCHARGE SUMMARY ---
General - Admit/Disc Date/PCP Admission Date/Primary Care Provider: 03/02/17 10:03 EMILEE OTERO MD Discharge Date: 03/03/17 - Discharge Diagnosis (1) Intractable vomiting Is this a current diagnosis for this admission?: Yes (2) Cannabis abuse Is this a current diagnosis for this admission?: Yes (3) Hypokalemia Is this a current diagnosis for this admission?: Yes (4) Dyspepsia Is this a current diagnosis for this admission?: Yes - Additional Information Home Medications: Potassium Chloride [K-Tab ER] 20 meq PO BID 03/02/17 Omeprazole 40 mg PO DAILY #90 capsule. 03/03/17 History of Present Illness History of Present Illness: TONY CANALES is a 26 year old female she came to the office with complaint of vomiting associated abdominal pain, in the office she had many episodes of vomiting, the vomitus was clear to recently eaten food because of the persistent vomiting she was admitted directly from the office to the office for evaluation and management of her symptoms the blood work revealed severe hypokalemia due to persistent vomiting. There is no diarrhea. Urine drug screen was positive for marijuana Hospital Course Hospital Course: Patient was admitted because of persistent vomiting associated with hyperkalemia. She was treated IV fluid on the potassium was replaced with intravenous potassium. She also complained of epigastric symptoms, burning sensation she was treated with Prevacid with good result suggesting that the symptom is most likely from dyspepsia. The urine dipstick showed a large proteinuria, the urine protein creatinine ratio is pending the urine drug screen was positive for marijuana, her symptoms is probably related to marijuana abuse Physical Exam Vital Signs: Temp Pulse Resp BP Pulse Ox 98.7 F 82 12 122/66 100 03/03/17 15:44 03/03/17 19:32 03/03/17 15:44 03/03/17 15:44 03/03/17 15:44 Intake & Output 03/02/17 03/03/17 03/04/17 06:59 06:59 06:59 Intake Total 3353 2105 Balance 3353 2105 Weight 74.4 kg General appearance: PRESENT: no acute distress Head exam: PRESENT: atraumatic, normocephalic Eye exam: PRESENT: PERRLA Ear exam: PRESENT: normal external ear exam Mouth exam: PRESENT: moist, tongue midline Neck exam: PRESENT: full ROM Respiratory exam: PRESENT: clear to auscultation jef Cardiovascular exam: PRESENT: +S1, +S2 Vascular exam: PRESENT: normal capillary refill GI/Abdominal exam: PRESENT: soft Rectal exam: PRESENT: deferred Neurological exam: PRESENT: alert, CN II-XII grossly intact Psychiatric exam: PRESENT: appropriate affect, normal mood Skin exam: PRESENT: dry, intact, warm Results Laboratory Results: 03/03/17 18:37 03/03/17 03/03/17 07:45 18:37 Sodium 137.9 136.8 L Potassium 3.1 L 3.3 L Chloride 93 L 98 Carbon Dioxide 31 H 26 Anion Gap 14 13 BUN 10 9 Creatinine 0.74 0.70 Est GFR ( Amer) > 60 > 60 Est GFR (Non-Af Amer) > 60 > 60 Glucose 110 111 H Calcium 9.8 9.5 Total Bilirubin 0.7 AST 27 ALT 25 Alkaline Phosphatase 71 Total Protein 7.1 Albumin 4.1 Impressions: Abdomen/Pelvis CT 03/02/17 12:42 IMPRESSION: NO SIGNIFICANT OR ACUTE PROCESS IN THE ABDOMEN OR PELVIS. Chest X-Ray 03/02/17 12:42 IMPRESSION: NO ACUTE RADIOGRAPHIC FINDING IN THE CHEST.
[2017-03-03 20:18] LABS: URINE CREATININE 278.6 mg/dL (16-327); URINE PROTEIN 17.9 mg/dL (<12)
[2017-03-03 20:29] LABS: ABSOLUTE BASOPHILS # (AUTO) 0.1 10^3/uL (0.0-0.2); ABSOLUTE EOSINOPHILS # (AUTO) 0.1 10^3/uL (0.0-0.6); ABSOLUTE LYMPHOCYTES (AUTO) 3.8 10^3/uL (0.5-4.7); ABSOLUTE NEUT (AUTO) 6.6 10^3/uL (1.7-8.2); BASOPHILS % (AUTO) 0.8 % (0-2); EOSINOPHILS % (AUTO) 1.1 % (0-6); HEMATOCRIT 36.8 % (36.0-47.0); HGB HCT DIFFERENCE 1.3; LYMPHOCYTES % (AUTO) 32.5 % (13-45); MEAN CORPUSCULAR HEMOGLOBIN 33.9 pg (27.0-33.4); MEAN CORPUSCULAR HGB CONC 34.4 g/dL (32.0-36.0); MEAN CORPUSCULAR VOLUME 99 fl (80-97); MONOCYTES % (AUTO) 8.8 % (3-13); RED BLOOD COUNT 3.74 10^6/uL (3.72-5.28); RED CELL DISTRIBUTION WIDTH 13.1 % (11.5-14.0); SEGMENTED NEUTROPHILS % (AUTO) 56.8 % (42-78); WHITE BLOOD COUNT 11.5 10^3/uL (4.0-10.5)
[2017-03-03 20:32] LABS: HEMOGLOBIN 12.7 g/dL (12.0-15.5)
[2017-03-03 20:55] VITALS: BP 122/66
[2017-03-04] MEDS ORDERED: LANSOPRAZOLE 30 MG TAB.RAP.DR PO SCH (10:00)
== END 2017-03-03 21:30 | disposition home or self-care (01) ==
LOC: 3W 10:03
PROVIDERS: ADMIT Internal Medicine; ATTEND Internal Medicine
DX: R11.2 Nausea with vomiting, unspecified (principal); R11.10 Vomiting, unspecified; F12.10 Cannabis abuse, uncomplicated; E87.6 Hypokalemia; R10.13 Epigastric pain; R80.9 Proteinuria, unspecified; E86.0 Dehydration; M54.9 Dorsalgia, unspecified; Z87.891 Personal history of nicotine dependence; Z87.19 Personal history of other diseases of the digestive system
CPT/HCPCS: 36415 ×2; 87086; 84156; 82570; 85025; 85027; 81025; 80076; 80048 ×2; 80053; 81001; 80307; 71010; 74176; G0378 ×2; G0379; J2405 ×2; J3480; J7030

== ENCOUNTER 2019-08-01 12:57 | Emergency (ER) | payer MEDICAID ==
[2019-08-01 14:55] LABS: A TYPE INFLUENZA AG NEGATIVE (NEGATIVE); B INFLUENZA AG NEGATIVE (NEGATIVE)
--- NOTE | 2019-08-01 15:03 | ER Document Report ---
HPI - HPI Time Seen by Provider: 08/01/19 13:56 Pain Level: 5 Notes: Patient is an otherwise healthy 29-year-old female presenting with complaints of cough, congestion, fatigue, nasal congestion and generalized body aches. Patient is concerned she may have the flu. Patient denies any nausea, vomiting, fever. - EENT EENT: REPORTS: Sore Throat. DENIES: Ear Pain, Eye problems - NEURO Neurology: DENIES: Headache, Weakness, Vision blurred, Dizzinesss / Vertigo - CARDIOVASCULAR Cardiovascular: REPORTS: Chest pain - RESPIRATORY Respiratory: REPORTS: Trouble Breathing, Coughing - GASTROINTESTINAL Gastrointestinal: DENIES: Abdominal Pain, Black / Bloody Stools - URINARY Urinary: DENIES: Dysuria, Urgency, Frequency - REPRODUCTIVE Reproductive: DENIES: : - MUSCULOSKELETAL Musculoskeletal: DENIES: Extremity pain Past Medical History - General Information source: Patient - Social History Smoking Status: Current Every Day Smoker Chew tobacco use (# tins/day): No Frequency of alcohol use: None Drug Abuse: None Family History: Reviewed & Not Pertinent, Other - Denied by the patient Patient has suicidal ideation: No Patient has homicidal ideation: No Neurological Medical History: Denies: Hx Seizures Renal/ Medical History: Denies: Hx Kidney Stones, Hx Peritoneal Dialysis GI Medical History: Reports: Hx Gastroesophageal Reflux Disease Psychiatric Medical History: Denies: Hx Depression Past Surgical History: Reports: Hx Section - x1. Denies: Hx Hysterectomy, Hx Pacemaker - Immunizations Hx Diphtheria, Pertussis, Tetanus Vaccination: Yes - < 10 yrs Vertical Provider Document - CONSTITUTIONAL Notes: PHYSICAL EXAMINATION: GENERAL: Well-appearing, well-nourished and in no acute distress. HEAD: Atraumatic, normocephalic. EYES: Pupils equal round extraocular movements intact, conjunctiva are normal. ENT: Nares patent with clear rhinorrhea, bilateral TMs unremarkable, no tonsillar swelling, exudates or erythema noted, uvula midline. NECK: Normal range of motion, mild bilateral cervical lymphadenopathy. LUNGS: No respiratory distress, lung sounds clear and equal bilaterally, no increased work of breathing. Musculoskeletal: Normal range of motion NEUROLOGICAL: Normal speech, normal gait. PSYCH: Normal mood, normal affect. SKIN: Warm, Dry, normal turgor, no rashes or lesions noted. - INFECTION CONTROL TRAVEL OUTSIDE OF THE [place] IN LAST 30 DAYS: No Course - Re-evaluation Re-evalutation: Laboratory 08/01/19 14:25 Influenza A (Rapid) NEGATIVE Influenza B (Rapid) NEGATIVE Influenza testing was negative. Likely viral upper respiratory illness. Patient appears well, nontoxic, no indication for further work-up. Patient will be discharged home with medications for symptomatic relief. Patient given ED return precautions, patient verbalizes understanding and agreement with this plan. The patient's emergency department workup and current diagnosis were explained to the patient and or family. Follow-up instructions were provided. Medications if prescribed were discussed. Instructions for when to return to the emergency department including specific worrisome symptoms were discussed with the patient and/or family. - Vital Signs Vital signs: Temp Pulse Resp BP Pulse Ox 98.4 F 79 18 127/74 H 100 08/01/19 13:05 08/01/19 13:05 08/01/19 13:05 08/01/19 13:05 08/01/19 13:05 Discharge - Discharge Clinical Impression: Viral upper respiratory infection Condition: Stable Disposition: HOME, SELF-CARE Additional Instructions: Your symptoms are most likely due to a viral infection it should resolve over the next 7-14 days. You should take [id number] guanfacine per bottle instructions to help thin the mucus. For nasal congestion: I would recommend that you get [id number] oxymetazoline also known is afrin. Use only per bottle instructions and be sure to never use this for more than 3 days if you can develop severe rebound congestion. You may also use tylenol or ibuprofen as needed for aches and throat discomfort. Please be sure to drink plenty of fluids and get rest. Return to the emergency department he began having difficulty bonnie athing, chest pain, persistent vomiting, or any other symptoms that are concerning to you. Prescriptions: Codeine Phosphate/Guaifenesin [Cheratussin AC Syrup] 10 ml PO QHS #100 ml Benzonatate [Tessalon Perle 100 mg Capsule] 100 mg PO Q8HP PRN #20 cap PRN Reason: Prednisone [Deltasone 20 mg Tablet] 3 tab PO DAILY 5 Days #15 tablet Forms: Return to Work Referrals: EMILEE OTERO MD [Primary Care Provider] - Follow up as needed
[2019-08-01 15:17] VITALS: BP 124/74
== END 2019-08-01 15:22 | disposition home or self-care (01) ==
LOC: ER 12:57
DX: J06.9 Acute upper respiratory infection, unspecified (principal); F17.200 Nicotine dependence, unspecified, uncomplicated
CPT/HCPCS: 87804; 99283

== ENCOUNTER 2019-09-09 14:15 | Emergency (ER) | payer OTHER, MEDICAID ==
[2019-09-09 14:19] VITALS: BP 125/74
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
[2019-09-09] MEDS ORDERED: IBUPROFEN 800 MG TABLET PO ONE (14:49)
== END 2019-09-09 14:58 | disposition home or self-care (01) ==
LOC: ER 14:15
DX: M79.10 Myalgia, unspecified site (principal); M54.9 Dorsalgia, unspecified; V79.50XA Passenger on bus injured in collision with unspecified motor vehicles in traffic accident, initial encounter; F17.210 Nicotine dependence, cigarettes, uncomplicated; Z71.6 Tobacco abuse counseling
CPT/HCPCS: 99283

== ENCOUNTER → 2019-09-20 | Outpatient (CLI) | payer OTHER, MEDICAID ==
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
== END ==
LOC: OD 10:39
PROVIDERS: ATTEND Internal Medicine
DX: T14.90XA Injury, unspecified, initial encounter (principal); V41 Car occupant injured in collision with pedal cycle
CPT/HCPCS: 72100

== ENCOUNTER 2020-03-18 00:43 | Emergency (ER) | payer SELFPAY ==
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
[2020-03-18] MEDS ORDERED: DIPH/PERTUSS(ACELL)/TETANUS VAC/PF 0.5 ML SYR (>=10YO) IM ONE (02:17)
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
[2020-03-18 04:02] VITALS: BP 130/70
== END 2020-03-18 03:50 | disposition home or self-care (01) ==
LOC: ER 00:43
DX: S01.111A Laceration without foreign body of right eyelid and periocular area, initial encounter (principal); S05.41XA Penetrating wound of orbit with or without foreign body, right eye, initial encounter; S10.93XA Contusion of unspecified part of neck, initial encounter; M54.2 Cervicalgia; M89.8X8 Other specified disorders of bone, other site; K13.79 Other lesions of oral mucosa; Y04.2XXA Assault by strike against or bumped into by another person, initial encounter; Y93.84 Activity, sleeping; Y92.009 Unspecified place in unspecified non-institutional (private) residence as the place of occurrence of the external cause; H53.8 Other visual disturbances; J34.89 Other specified disorders of nose and nasal sinuses; Z23 Encounter for immunization; F17.210 Nicotine dependence, cigarettes, uncomplicated; K21.9 Gastro-esophageal reflux disease without esophagitis; Z79.899 Other long term (current) drug therapy
CPT/HCPCS: 70450; 70486; 72125; 90471; 90715; 99284

== ENCOUNTER 2020-05-27 13:47 | Emergency (ER) | payer MEDICAID ==
[2020-05-27] MEDS ORDERED: ONDANSETRON 4 MG TAB.RAPDIS PO ONE (13:58)
--- NOTE | 2020-05-27 14:12 | ER Document Report ---
ED Medical Screen (RME) - General Chief Complaint: Vomiting Stated Complaint: VOMITING,SORE THROAT Time Seen by Provider: 05/27/20 13:54 Primary Care Provider: EMILEE OTERO MD [Primary Care Provider] - Follow up as needed TRAVEL OUTSIDE OF THE [place] IN LAST 30 DAYS: No - HPI Notes: 05/27/20 14:08 30-year-old female G2, P2 who is a poor historian presents to the emergency room for complaints of epigastric abdominal pain with vomiting for the last 2 weeks. Reports she tried Pepto-Bismol without relief. Does not have a primary care provider to follow-up with. Denies any chest pain, shortness of breath, fever. Reports chills. Denies any abdominal surgeries. Patient states last time she vomited was 5 minutes ago, no coffee ground emesis. No history of GI bleed. Last menstrual cycle was March 12, 2020. Patient did not admit to any cannabis use but does have a history of cannabis use in her history. I have greeted and performed a rapid initial assessment of this patient. A comprehensive ED assessment and evaluation of the patient, analysis of test results and completion of the medical decision making process will be conducted by additional ED providers. PHYSICAL EXAMINATION: GENERAL: Well-appearing, well-nourished and in no acute distress. NECK: Normal range of motion CV: s1, s2 regular LUNGS: No respiratory distress abd: epigastric tenderness on palpation. - Related Data Allergies/Adverse Reactions: No Known Allergies Allergy (Verified 08/01/19 13:33) Past Medical History Neurological Medical History: Denies: Hx Seizures Renal/ Medical History: Denies: Hx Kidney Stones, Hx Peritoneal Dialysis GI Medical History: Reports: Hx Gastroesophageal Reflux Disease Musculoskeltal Medical History: Reports Hx Musculoskeletal Trauma Psychiatric Medical History: Denies: Hx Depression Past Surgical History: Reports: Hx Section - 3. Denies: Hx Hysterectomy, Hx Pacemaker - Immunizations Hx Diphtheria, Pertussis, Tetanus Vaccination: Yes - < 10 yrs Doctor's Discharge - Discharge Referrals: EMILEE OTERO MD [Primary Care Provider] - Follow up as needed
[2020-05-27 15:12] VITALS: BP 137/96
[2020-05-27] MEDS ORDERED: NORMAL SALINE 1000 ML 1,000 ML IV ONE (15:36)
--- NOTE | 2020-05-27 15:37 | ER Document Report ---
ED GI/ - General Chief Complaint: Nausea/Vomiting Stated Complaint: VOMITING,SORE THROAT Time Seen by Provider: 05/27/20 13:54 Primary Care Provider: EMILEE OTERO MD [Primary Care Provider] - Follow up as needed Mode of Arrival: Ambulatory Information source: Patient Notes: 30-year-old female past medical history significant for GERD presents to the emergency room complaining of mid epigastric pain with nausea and vomiting for the past 2 weeks. Describes it as a burning sensation. States nothing makes it worse, nothing makes it better. States she is now unable to tolerate anything p.o. including her own saliva. Not actively vomiting or spitting. She is talking in full sentences. Denies chest pain, denies diaphoresis. States she has been trying to take Pepto-Bismol without relief. LMP 03/12 states she did take a test in March at home that was negative. Denies any recent travel. No COVID-19 exposure. TRAVEL OUTSIDE OF THE [place] IN LAST 30 DAYS: No - Related Data Allergies/Adverse Reactions: No Known Allergies Allergy (Verified 08/01/19 13:33) Past Medical History - General Information source: Patient - Social History Smoking Status: Never Smoker Chew tobacco use (# tins/day): No Frequency of alcohol use: None Drug Abuse: None Family History: Reviewed & Not Pertinent, Other - Denied by the patient Neurological Medical History: Denies: Hx Seizures Renal/ Medical History: Denies: Hx Kidney Stones, Hx Peritoneal Dialysis GI Medical History: Reports: Hx Gastroesophageal Reflux Disease Musculoskeletal Medical History: Reports Hx Musculoskeletal Trauma Psychiatric Medical History: Denies: Hx Depression Past Surgical History: Reports: Hx Section - 3. Denies: Hx Hysterectomy, Hx Pacemaker - Immunizations Hx Diphtheria, Pertussis, Tetanus Vaccination: Yes - < 10 yrs Review of Systems - Review of Systems -: Yes ROS unobtainable due to patient's medical condition Constitutional: No symptoms reported Cardiovascular: No symptoms reported Respiratory: No symptoms reported Gastrointestinal: Abdominal pain, Nausea, Vomiting. denies: Diarrhea, Constipation Musculoskeletal: No symptoms reported Skin: No symptoms reported Neurological/Psychological: No symptoms reported -: Yes All other systems reviewed and negative Physical Exam - Vital signs Vitals: Temp Pulse Resp BP Pulse Ox 99.4 F 93 18 137/96 H 100 05/27/20 15:11 05/27/20 15:11 05/27/20 15:11 05/27/20 15:11 05/27/20 15:11 - Notes Notes: VITAL SIGNS: Within normal limits. GENERAL: Mild acute distress, non-toxic appearance. HEAD: Normal with no signs of head trauma. EYES: PERRLA, EOMI, conjunctiva normal, no discharge. EARS: Hearing grossly intact. NOSE: Normal. THROAT: Oropharynx is normal. NECK: Normal range of motion, no tenderness, supple, no lymphadenopathy, No ad enopathy, no JVD. CHEST: Clear breath sounds bilaterally. No wheezes, rales, or rhonchi. CARDIAC: Regular rate and rhythm. S1 and S2, without murmurs, gallops, or rubs. VASCULAR: No Edema. Peripheral pulses normal and equal in all extremities. ABDOMEN: Normal and soft with no tenderness, no masses or pulsatile masses. No organomegaly. Positive bowel sounds x4. No CVA tenderness noted bilaterally. GASTROINTESTINAL: Bowel sounds normal GENITOURINARY: Normal, No tenderness LYMPATHTIC: No lymphadenopathy noted. MUSCULOSKELETAL: Good range of motion of all major joints. Extremities without clubbing, cyanosis or edema. NEUROLOGICAL: Alert and oriented x 3. No focal sensory or strength deficits. Speech normal. Follows commands appropriately. PSYCHIATRIC: Normal Affect, judgement and mood. SKIN: Normal appearance with no rashes or lesions. Course - Re-evaluation Re-evalutation: 05/27/20 16:32 Reviewed with patient lab results and positive test. Also discussed with patient that she has urinary tract infection. Will get pelvic ultrasound secondary to pain. P.o. medications for her UTI. reevaluate. 05/27/20 17:54 Patient is resting comfortably she is able to tolerate p.o. fluids. She is aware that ultrasound results and hCG quant are still pending. Patient has requested to leave AGAINST MEDICAL ADVICE. She was counseled on the risks of leaving AGAINST MEDICAL ADVICE. The patient has chosen to leave the facility against medical advice. The relevant issues have been reviewed and discussed with the patient and family at the bedside. At the time of this assessment there is no indication for involuntary commitment. The patient is alert, oriented, and able to express clearly their reasoning for not wanting to remain in the emergency department for further treatment. The patient is not clinically psychotic, intoxicated, and denies and suicidal ideation. Differential or suspected diagnoses based on medical screening exam: Gastric pain, nausea, unknown status The patient is aware of the concerning diagnoses and acknowledges understanding of the reasons for the following recommendations: Loss of life, permanent disability, chronic pain, worsening of condition, cardiac dysfunction, respiratory dysfunction loss of current lifestyle, miscarriage The following recommendations/services were offered and refused: Further evaluation, ultrasound results, lab results The following risks were explained: , permanent disability, loss of function, worsening condition, chronic pain, gastrointestinal dysfunction, miscarriage. Clinical impression: Patient is competent to make decisions regarding the medical that is being offered. - Vital Signs Vital signs: Temp Pulse Resp BP Pulse Ox 99.4 F 93 18 137/96 H 100 05/27/20 15:11 05/27/20 15:11 05/27/20 15:11 05/27/20 15:11 05/27/20 15:11 - Laboratory Result Diagrams: 05/27/20 15:22 05/27/20 15:22 Laboratory results interpreted by me: 05/27/20 05/27/20 05/27/20 15:22 15:22 15:22 WBC 16.7 H MCV 100 H MCH 34.1 H Absolute Neuts (auto) 13.2 H Seg Neutrophils % 79.1 H Sodium 134.9 L BUN 5 L Creatinine 0.50 L Beta HCG, Quant 381398.00 H Urine Protein Urine Ketones Urine Bilirubin Urine Urobilinogen Ur Leukocyte Esterase Urine HCG, Qual 05/27/20 15:25 WBC MCV MCH Absolute Neuts (auto) Seg Neutrophils % Sodium BUN Creatinine Beta HCG, Quant Urine Protein 100 H Urine Ketones 20 H Urine Bilirubin SMALL H Urine Urobilinogen 4.0 H Ur Leukocyte Esterase LARGE H Urine HCG, Qual POSITIVE H Discharge - Discharge Clinical Impression: Left against medical advice Nausea and vomiting Qualifiers: Vomiting type: unspecified Vomiting Intractability: non-intractable Qualified Code(s): R11.2 - Nausea with vomiting, unspecified UTI (urinary tract infection) Qualifiers: Urinary tract infection type: site unspecified Hematuria presence: without hematuria Qualified Code(s): N39.0 - Urinary tract infection, site not specified Condition: Stable Disposition: AGAINST MEDICAL ADVICE Instructions: Antinausea Medication ([facility]), ([facility]), Reglan ([facility]), Urinary Tract Infection ([facility]), Vomiting ([facility]) Additional Instructions: Take medications as prescribed. Outpatient follow-up with an INHALATION THERAPY AIDE. You have left AGAINST MEDICAL ADVICE. You were counseled on the risks and benefits of leaving AGAINST MEDICAL ADVICE. The patient has chosen to leave the facility against medical advice. The relevant issues have been reviewed and discussed with the patient and family at the bedside. At the time of this assessment there is no indication for involuntary commitment. The patient is alert, oriented, and able to express clearly their reasoning for not wanting to remain in the emergency department for further treatment. The patient is not clinically psychotic, intoxicated, and denies and suicidal ideation. Differential or suspected diagnoses based on medical screening exam: Nausea, vomiting, epigastric pain unknown status The patient is aware of the concerning diagnoses and acknowledges understanding of the reasons for the following recommendations: Loss of life, permanent disability, chronic pain, worsening of condition, cardiac dysfunction, respiratory dysfunction loss of current lifestyle, miscarriage, reproductive dysfunction, gastrointestinal dysfunction The following recommendations/services were offered and refused: Labs and test results The following risks were explained: , permanent disability, loss of function, loss of current lifestyle, chronic pain, miscarriage, gastrointestinal dysfunction, reproductive dysfunction. You can return to the emergency room at any time to complete your treatment. Prescriptions: Nitrofurantoin Monohyd/M-Cryst [Macrobid 100 mg Capsule] 100 mg PO BID #14 cap Metoclopramide HCl [Reglan 10 mg Tablet] 1 tab PO ASDIR PRN #12 tablet PRN Reason: Referrals: EMILEE OTERO MD [Primary Care Provider] - Follow up as needed
[2020-05-27 15:50] LABS: ABSOLUTE BASOPHILS # (AUTO) 0.1 10^3/uL (0.0-0.2); ABSOLUTE EOSINOPHILS # (AUTO) 0.1 10^3/uL (0.0-0.6); ABSOLUTE LYMPHOCYTES (AUTO) 2.5 10^3/uL (0.5-4.7); ABSOLUTE MONOCYTES (AUTO) 0.9 10^3/uL (0.1-1.4); ABSOLUTE NEUT (AUTO) 13.2 10^3/uL (1.7-8.2); BASOPHILS % (AUTO) 0.6 % (0-2); EOSINOPHILS % (AUTO) 0.5 % (0-6); HEMATOCRIT 42.1 % (36.0-47.0); HEMOGLOBIN 14.4 g/dL (12.0-15.5); LYMPHOCYTES % (AUTO) 14.7 % (13-45); MEAN CORPUSCULAR HEMOGLOBIN 34.1 pg (27.0-33.4); MEAN CORPUSCULAR HGB CONC 34.2 g/dL (32.0-36.0); MEAN CORPUSCULAR VOLUME 100 fl (80-97); MONOCYTES % (AUTO) 5.1 % (3-13); PLATELET COUNT 287 10^3/uL (150-450); RED BLOOD COUNT 4.21 10^6/uL (3.72-5.28); RED CELL DISTRIBUTION WIDTH 13.1 % (11.5-14.0); SEGMENTED NEUTROPHILS % (AUTO) 79.1 % (42-78); TOTAL CELLS COUNTED % (AUTO) 100 %; WHITE BLOOD COUNT 16.7 10^3/uL (4.0-10.5)
[2020-05-27 16:09] LABS: ALBUMIN 4.4 g/dL (3.5-5.0); ALKALINE PHOSPHATASE 66 U/L (38-126); ANION GAP 7 (5-19); ASPARTATE AMINO TRANSFERASE 28 U/L (14-36); BILIRUBIN,TOTAL 0.5 mg/dL (0.2-1.3); BLOOD UREA NITROGEN 5 mg/dL (7-20); CALCIUM 9.8 mg/dL (8.4-10.2); CARBON DIOXIDE 30 mmol/L (22-30); CHLORIDE 98 mmol/L (98-107); GLUCOSE 91 mg/dL (75-110); POTASSIUM 3.7 mmol/L (3.6-5.0); TOTAL PROTEIN 7.8 g/dL (6.3-8.2)
[2020-05-27 16:20] LABS: APPEARANCE,URINE CLOUDY; BILIRUBIN,URINE SMALL (NEGATIVE); GLUCOSE, URINE NEGATIVE (NEGATIVE); KETONES,URINE 20 mg/dL (NEGATIVE); LEUKOCYTE ESTERASE,URINE LARGE (NEGATIVE); NITRITE,URINE NEGATIVE (NEGATIVE); PROTEIN,URINE 100 mg/dL (NEGATIVE); URINE SPECIFIC GRAVITY 1.028
[2020-05-27 16:21] LABS: COLOR,URINE YELLOW
--- NOTE | 2020-05-27 16:22 | RADIOLOGY REPORT (SQ) ---
EXAM DESCRIPTION: U/S ABDOMEN LTD W/DOPPLER IMAGES COMPLETED DATE/TIME: 05/27/2020 4:14 pm REASON FOR STUDY: epigastric abd pain w/ vomiting x 2 weeks COMPARISON: None. TECHNIQUE: Dynamic and static grayscale images acquired of the abdomen and recorded on PACS. Nathano evelyn selected color Doppler and spectral images recorded. LIMITATIONS: None. FINDINGS: PANCREAS: No masses. Visualized pancreatic duct normal caliber. LIVER: No masses. Echotexture normal. LIVER VASCULATURE: Normal directional flow of the main portal vein and hepatic veins. GALLBLADDER: No stones. Normal wall thickness. No pericholecystic fluid. ULTRASOUND-DETECTED PEÑA'S SIGN: Negative. INTRAHEPATIC DUCTS AND COMMON DUCT: CBD and intrahepatic ducts normal caliber. No filling defects. INFERIOR VENA CAVA: Normal flow. AORTA: No aneurysm. RIGHT KIDNEY: Normal size. Normal echogenicity. No solid or suspicious masses. No hydronephrosis. No calcifications. PERITONEAL AND RIGHT PLEURAL SPACE: No ascites or effusions. OTHER: No other significant findings. IMPRESSION: NORMAL RIGHT UPPER QUADRANT ULTRASOUND. TECHNICAL DOCUMENTATION: JOB ID: [id number] 2010 [employer]- All Rights Reserved Reading location - IP/workstation name: [email or web address]
[2020-05-27] MEDS ORDERED: NITROFURANTOIN MONOHYD/M-CRYST 100 MG CAPSULE PO ONE (16:33)
[2020-05-27 16:40] LABS: URINE AMPHETAMINES SCREEN NEGATIVE; URINE BARBITURATES SCREEN NEGATIVE; URINE BENZODIAZEPINES SCREEN NEGATIVE; URINE COCAINE SCREEN NEGATIVE; URINE METHADONE SCREEN NEGATIVE; URINE PHENCYCLIDINE SCREEN NEGATIVE
[2020-05-27 16:43] LABS: URINE MARIJUANA (THC) SCREEN UNCONFIRMED POSITIVE
--- NOTE | 2020-05-27 18:11 | RADIOLOGY REPORT (SQ) ---
EXAM DESCRIPTION: U/S 1TRIMESTER/1GEST W/DOPPLER IMAGES COMPLETED DATE/TIME: 05/27/2020 5:56 pm REASON FOR STUDY: pain COMPARISON: None. TECHNIQUE: Transabdominal static and realtime grayscale images acquired of the pelvis. Additional se lected spectral and color Doppler images recorded. All images stored on PACs. bHCG: Pending CLINICAL DATES: LMP 03/12/2020 10 weeks 6 days LIMITATIONS: None. FINDINGS: FETUS: Single Living intrauterine . ULTRASOUND EGA: 10 weeks 4 days ULTRASOUND NATALIA: 12/19/2020 EFW: Not applicable less than 20 weeks. CRL: 3.7 cm FHR: 152 beats per minute. SURVEY: Too early to assess. AMNIOTIC FLUID: Adequate amount. PLACENTA: Not yet developed due to early gestation. SUBCHORIONIC BLEED: Yes SIZE OF BLEED: 2 x 1 x 1.1 cm UTERUS: No masses. No anomalies. CERVICAL LENGTH: 2.7 cm. Closed. RIGHT ADNEXA: Ovary not seen. No adnexal free fluid. No adnexal masses. LEFT ADNEXA: Normal ovary with normal vascular flow. 2.1 x 2.6 x 2.7 cm. No adnexal free fluid. No adnexal masses. FREE FLUID: None. OTHER: No other significant finding. IMPRESSION: LIVING INTRAUTERINE . EGA 10 weeks 4 days. Trimester of : First trimester - 0 to 13 weeks. TECHNICAL DOCUMENTATION: JOB ID: [id number] 2010 [employer]- All Rights Reserved rev Reading location - IP/workstation name: [email or web address]
== END 2020-05-27 18:06 | disposition left against medical advice (07) ==
LOC: ER 13:47
DX: O21.9 Vomiting of pregnancy, unspecified (principal); O23.41 Unspecified infection of urinary tract in pregnancy, first trimester; O26.891 Other specified pregnancy related conditions, first trimester; R10.13 Epigastric pain; O20.8 Other hemorrhage in early pregnancy; Z3A.10 10 weeks gestation of pregnancy; Z53.20 Procedure and treatment not carried out because of patient's decision for unspecified reasons; Z87.19 Personal history of other diseases of the digestive system
CPT/HCPCS: 99285; 36415; 84702; 83690; 85025; 81025; 80053; 81001; 80307; 76801; 76705; 93976; S0119; J7030; J3490; J8499

== ENCOUNTER 2020-07-16 09:59 | Emergency (ER) | payer MEDICAID ==
[2020-07-16 10:08] VITALS: BP 121/71
--- NOTE | 2020-07-16 10:47 | ER Document Report ---
ED GI/ - General Chief Complaint: Urinary Problem Stated Complaint: URINARY PROBLEM Time Seen by Provider: 07/16/20 10:38 Primary Care Provider: EMILEE OTERO MD [ACTIVE STAFF] - Follow up in 1 week Mode of Arrival: Ambulatory Information source: Patient Notes: 30-year-old female presented to ED for complaint of vaginal burning. She states the pain is a 3 on a 1-5 She states it only alvares when she is urinating and then it is very uncomfortable. S menstrual period was 07/10/2020. She smokes half pack a day does not drink or use any illicit drugs. She does work for [email or web address]. She H lives with her children has no past medical or surgical history. TRAVEL OUTSIDE OF THE [place] IN LAST 30 DAYS: No - HPI Patient complains to provider of: Other - Burning with urination Onset: Other Timing/Duration: Gradual - Several days, Worse Quality of pain: Burning Severity at maximum: Moderate Severity in ED: Moderate Pain Level: 3 Location: Vaginal Vaginal bleeding (Compared to normal period): None LMP: 07/10/2020 Associated symptoms: Urinary frequency, Urinary urgency Exacerbated by: Other - Urination Relieved by: Denies Similar symptoms previously: Yes Recently seen / treated by doctor: No - Related Data Allergies/Adverse Reactions: No Known Allergies Allergy (Verified 07/16/20 10:38) Past Medical History - General Information source: Patient - Social History Smoking Status: Current Every Day Smoker Cigarette use (# per day): Yes - Half pack per day Chew tobacco use (# tins/day): No Frequency of alcohol use: None Drug Abuse: None Occupation: [employer] Lives with: Alone - Kids Family History: Reviewed & Not Pertinent, Other - Denied by the patient Patient has homicidal ideation: No - Past Medical History Cardiac Medical History: Reports: None Pulmonary Medical History: Reports: None EENT Medical History: Reports: None Neurological Medical History: Reports: None Endocrine Medical History: Reports: None Renal/ Medical History: Reports: None Malignancy Medical History: Reports: None GI Medical History: Reports: Hx Gastroesophageal Reflux Disease Musculoskeletal Medical History: Reports Hx Musculoskeletal Trauma Skin Medical History: Reports None Psychiatric Medical History: Reports: None Traumatic Medical History: Reports: None Infectious Medical History: Reports: None Past Surgical History: Reports: Hx Section - 3 - Immunizations Immunizations up to date: Yes Hx Diphtheria, Pertussis, Tetanus Vaccination: Yes - < 10 yrs Review of Systems - Review of Systems Constitutional: No symptoms reported EENT: No symptoms reported Cardiovascular: No symptoms reported Respiratory: No symptoms reported Gastrointestinal: No symptoms reported Genitourinary: Burning, Frequency, Urgency Female Genitourinary: No symptoms reported Musculoskeletal: No symptoms reported Skin: No symptoms reported Hematologic/Lymphatic: No symptoms reported Neurological/Psychological: No symptoms reported -: Yes All other systems reviewed and negative Physical Exam - Vital signs Vitals: Temp Pulse BP Pulse Ox 97.6 F 70 121/71 97 07/16/20 10:07 07/16/20 10:07 07/16/20 10:07 07/16/20 10:07 Interpretation: Normal - General General appearance: Appears well, Alert - HEENT Head: Normocephalic, Atraumatic Eyes: Normal Pupils: PERRL - Respiratory Respiratory status: No respiratory distress Chest status: Nontender Breath sounds: Normal Chest palpation: Normal - Cardiovascular Rhythm: Regular Heart sounds: Normal auscultation Murmur: No - Abdominal Inspection: Normal Distension: No distension Bowel sounds: Normal Tenderness: Nontender Organomegaly: No organomegaly - Back Back: Normal, Nontender - Extremities General upper extremity: Normal inspection, Nontender, Normal color, Normal ROM, Normal temperature General lower extremity: Normal inspection, Nontender, Normal color, Normal ROM, Normal temperature, Normal weight bearing. No: Kya's sign - Neurological Neuro grossly intact: Yes Cognition: Normal Orientation: AAOx4 [place] Coma Scale Eye Opening: Spontaneous [place]ara Coma Scale Verbal: Oriented [place] Coma Scale Motor: Obeys Commands Dara Coma Scale Total: 15 Speech: Normal Motor strength normal: LUE, RUE, LLE, RLE Sensory: Normal - Psychological Associated symptoms: Normal affect, Normal mood - Skin Skin Temperature: Warm Skin Moisture: Dry Skin Color: Normal Course - Re-evaluation Re-evalutation: 07/16/20 12:15 Discussed results of wet mount and urine with patient. Patient was treated with Rocephin IM, doxycycline, Flagyl, and azithromycin. Patient verbalized understanding and agreement with treatment plan. She was informed not to have any sexual intercourse with the person she was with until they have been tested and treated. Understanding and agreement treatment plan 07/16/20 12:58 Patient informed gonorrhea and Chlamydia were negative - Vital Signs Vital signs: Temp Pulse Resp BP Pulse Ox 97.6 F 70 121/71 97 07/16/20 10:07 07/16/20 10:07 07/16/20 10:07 07/16/20 10:07 - Laboratory Laboratory results interpreted by me: 07/16/20 10:52 Urine Protein 30 H Urine Ketones TRACE H Urine Urobilinogen 4.0 H Ur Leukocyte Esterase LARGE H Urine Ascorbic Acid 40 H Discharge - Discharge Clinical Impression: Trichomonal urethritis UTI (urinary tract infection) Qualifiers: Urinary tract infection type: acute cystitis Hematuria presence: with hematuria Qualified Code(s): N30.01 - Acute cystitis with hematuria Condition: Stable Disposition: HOME, SELF-CARE Additional Instructions: URINARY TRACT INFECTION: Your evaluation indicates that you have a urinary tract infection. This is due to germs growing in the bladder. This is a common problem. This infection usually responds quickly to antibiotics. Your antibiotic should be taken exactly as prescribed. Drink plenty of fluids -- three to four quarts a day. Occasionally, a bladder anesthetic will be prescribed to help stop the feeling of urgency until the antibiotic has a chance to clear the infection. This may cause your urine to be dark orange. Certain urine infections require a culture. If the doctor obtained a culture, the results will be back in two days. You should call to see if a change in treatment is needed. A repeat urinalysis after you finish treatment is often recommended. The physician will let you know if further testing is required. Call the doctor if you develop fever, chills, flank pain, inability to urinate, or blood in the urine. Trichomonas Infection Trichomoniasis is infection of the vagina or male genital tract with Trichomonas vaginalis. It can be asymptomatic or cause urethritis, vaginitis, or occasionally cystitis, epididymitis, or prostatitis. Diagnosis is by microscopic examination of vaginal or prostatic secretions or by urethral culture. Patients and sex partners are treated with metronidazole. T. vaginalis is a flagellated, sexually transmitted protozoan that more often infects women (about 20% of women of reproductive age) than men. Infection may be asymptomatic in either sex, but asymptomatic is the rule for men. In men, protozoa may persist for long periods in the tract without causing symptoms; thus, protozoa may be transmitted unwittingly to sex partners. Trichomoniasis may account for up to 5% of nongonococcal, nonchlamydial urethritis in men in some areas. Co-infection with gonorrhea and other sexually transmitted diseases (STDs) is common. In women, symptoms range from none to copious, yellow-green, frothy vaginal discharge with soreness of the vulva and perineum, dyspareunia, and dysuria. Asymptomatic infection may become symptomatic at any time as the vulva and perineum become inflamed and edema develops in the labia. The vaginal lind and surface of the cervix may have punctate, red "strawberry" spots. Urethritis and possibly cystitis may also occur. Men are usually asymptomatic; however, sometimes urethritis results in a discharge that may be transient, frothy, or purulent or that causes dysuria and frequency, usually early in the morning. Often, urethritis is mild and causes only minimal urethral irritation and occasional moisture at the urethral meatus, under the foreskin, or both. Epididymitis and prostatitis are rare complications. Trichomoniasis is suspected in women with vaginitis, in men with urethritis, and in their sex partners. Suspicion is high if symptoms persist after patients have been evaluated and treated for other infections such as gonorrhea and chlamydial, mycoplasmal, and ureaplasmal infections. In women, diagnosis is based on clinical criteria and in-office testing. The saline wet mount is examined microscopically as soon as possible to detect trichomonads.In men, microscopy of urine is insensitive, although occasionally organisms are visible in a first-voided morning specimen or a centrifuged specimen. Cultures of urine and urethral swabs are more sensitive. As with diagnosis of any STD, patients with trichomoniasis should be tested to exclude other common STDs such as gonorrhea and chlamydial infection. Metronidazole or tinidazole 2 g po in a single dose cures up to 95% of w omen if sex partners are treated simultaneously. Effectiveness of single-dose regimens in men is not as clear, so treatment is typically with metronidazole or tinidazole 500 mg bid for 5 to 7 days. Sex partners should be screened and treated for trichomoniasis and other STDs. If poor adherence to follow-up is likely, treatment can be initiated in sex partners of patients with documented trichomoniasis without confirming the diagnosis in the partner. Rocephin You have been given an injection of an antibiotic called Rocephin (ceftriaxone). Sometimes the injection must be combined with antibiotic pills. For some infections, such as an uncomplicated ear infection, Rocephin provides all the antibiotic that's needed. The antibiotic will be in your body for about two days. For serious infections, we usually repeat doses of Rocephin daily. Side effects are very unusual following a shot. Women may develop vaginal yeast infections, and babies can get yeast (thrush) in the mouth following the use of antibiotics. Contact your physician if you have symptoms with this medication. Allergy to this antibiotic can result in hives, wheezing, faintness, or itching. If symptoms of allergy occur, call the doctor at once. DOXYCYCLINE: Doxycycline (Vibramycin, Doryx) is an antibiotic of the tetracycline family. This type of drug is useful for infections of the respiratory tract and genital tract, and is sometimes used for intestinal infections. Unlike most tetracyclines, doxycycline can be taken with food. It is longe r acting, and (usually) less prone to side effects than regular tetracycline. Tetracycline antibiotics can stain immature teeth and SHOULD NOT BE TAKEN BY CHILDREN, NURSING MOTHERS, OR WOMEN. Tetracyclines can make you more prone to sunburn. Abdominal cramping, nausea, and diarrhea are occasional side effects. Women may experience vaginal yeast infections. Call the doctor at once if you develop hives, itching, shortness of breath, or lightheadedness. AZITHROMYCIN: Azithromycin (Zithromax) is a broad spectrum antibiotic in the same class as erythromycin. It can treat a variety of bacterial infections, but is most frequently used for respiratory infections. Azithromycin is extremely long-lasting. It accumulates in body tissues and continues to kill bacteria for many days. In order to improve absorption, Azithromycin should be taken at least one hour before or two hours after a meal. It does not have the same strong tendency to upset the stomach as erythromycin and is usually very well tolerated. Patients who have had a rash or other true allergic reactions to erythromycin should not take this medication. Call if you develop gastroin testinal distress, severe diarrhea, rash, hives, itching, or shortness of breath. METRONIDAZOLE: Metronidazole (Flagyl) has been prescribed. This medication is used to kill a type of bacteria called anaerobes, and protozoan parasites such as trichomonas and Giardia. Flagyl often causes a metallic taste in the mouth and mild nausea. Do not use alcohol in any form with Flagyl (including alcohol in medication elixirs). Flagyl interacts with alcohol to cause flushing, palpitations, headache, stomach cramps, and vomiting. Do not use Flagyl if you are taking Antabuse (disulfiram). Call the doctor at once if you develop rash, shortness of breath, itching, or lightheadedness. FOLLOW-UP CARE: If you have been referred to a physician for follow-up care, call the physician s office for an appointment as you were instructed or within the next two days. If you experience worsening or a significant change in your symptoms, notify the physician immediately or return to the Emergency Department at any time for re- evaluation. Prescriptions: Metronidazole [Flagyl 500 mg Tablet] 500 mg PO TID #21 tablet Doxycycline Monohydrate [Mondoxyne Nl] 100 mg PO BID #20 capsule Forms: Smoking Cessation Education, Return to Work Referrals: EMILEE OTERO MD [ACTIVE STAFF] - Follow up in 1 week
[2020-07-16 11:13] LABS: BACTERIA (WET MOUNT) 4+ BACTERIA SEEN; EPITHELIALS (WET MOUNT) 3+ EPITHELIALS SEEN; RBCS (WET MOUNT) 4+ RBCS SEEN; T.VAGINALIS (WET MOUNT) TRICHOMONAS SEEN; WBCS (WET MOUNT) 4+ WBCS SEEN; YEAST (WET MOUNT) NO YEAST SEEN
[2020-07-16 11:25] LABS: APPEARANCE,URINE SLIGHTLY-CLOUDY; BILIRUBIN,URINE NEGATIVE (NEGATIVE); COLOR,URINE YELLOW; GLUCOSE, URINE NEGATIVE (NEGATIVE); KETONES,URINE TRACE mg/dL (NEGATIVE); LEUKOCYTE ESTERASE,URINE LARGE (NEGATIVE); NITRITE,URINE NEGATIVE (NEGATIVE); PROTEIN,URINE 30 mg/dL (NEGATIVE); URINE SPECIFIC GRAVITY 1.027
[2020-07-16] MEDS ORDERED: CEFTRIAXONE INJ 1000 MG VIAL IM ONE (12:00)
[2020-07-16] MEDS ORDERED: LIDOCAINE 1% INJ-PF (10 MG/ML) 30 ML SDV IM ONE (12:00)
[2020-07-16] MEDS ORDERED: AZITHROMYCIN 250 MG TABLET PO ONE (12:00)
[2020-07-16] MEDS ORDERED: DOXYCYCLINE HYCLATE 100 MG TABLET PO ONE (12:01)
[2020-07-16] MEDS ORDERED: METRONIDAZOLE 500 MG TABLET PO ONE (12:04)
[2020-07-16 12:37] LABS: CHLAM PCR NOT DETECTED (NOT DETECT)
== END 2020-07-16 12:30 | disposition home or self-care (01) ==
LOC: ER 09:59
DX: A59.03 Trichomonal cystitis and urethritis (principal); N30.01 Acute cystitis with hematuria; F17.210 Nicotine dependence, cigarettes, uncomplicated
CPT/HCPCS: 99284; 96372; 87086; 87210; 81001; 87491; 87591; Q0144; J3490 ×3; J0696

== ENCOUNTER 2020-08-21 18:25 | Emergency (ER) | payer BC, MEDICAID ==
[2020-08-21] MEDS ORDERED: ONDANSETRON HCL INJ/PF 4 MG/2 ML SDV IM ONE (19:33)
--- NOTE | 2020-08-21 19:35 | ER Document Report ---
ED Medical Screen (RME) - General Chief Complaint: Vomiting Stated Complaint: ABDOMINAL PAIN,VOMITING Time Seen by Provider: 08/21/20 19:28 Primary Care Provider: LAURA GONG DO [Primary Care Provider] - Follow up as needed Mode of Arrival: Ambulatory Information source: Patient Notes: 30-year-old female presented to ED for complaint of nausea and vomiting since . She states her last menstrual period was 08/14/2020. She smokes like a day does not drink or do drugs. 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 She does not have any cough or congestion. She is vomiting while she is being seen. Have IM Zofran right now and she will be seen for blood urine and IV fluids when available. Abdomen is soft but tender bowel sounds active she states last bowel movement was yesterday and it was firm. I have greeted and performed a rapid initial assessment of this patient. A comprehensive ED assessment and evaluation of the patient, analysis of test results and completion of medical decision making process will be conducted by an additional ED providers. TRAVEL OUTSIDE OF THE [place] 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 Lives with: Family Family history: Reviewed & Not Pertinent - Past Medical History Cardiac Medical History: Reports: None Pulmonary Medical History: Reports: None GI Medical History: Reports: Hx Gastroesophageal Reflux Disease Musculoskeltal Medical History: Reports Hx Musculoskeletal Trauma Past Surgical History: Reports: Hx Section - 3 - Immunizations Immunizations up to date: Yes Hx Diphtheria, Pertussis, Tetanus Vaccination: Yes - < 10 yrs Physical Exam - Vital signs Vitals: Temp Pulse Resp BP Pulse Ox 98.5 F 70 16 128/86 H 100 08/21/20 18:34 08/21/20 18:34 08/21/20 18:34 08/21/20 18:34 08/21/20 18:34 Course - Vital Signs Vital signs: Temp Pulse Resp BP Pulse Ox 98.5 F 70 16 128/86 H 100 08/21/20 18:34 08/21/20 18:34 08/21/20 18:34 08/21/20 18:34 08/21/20 18:34 Doctor's Discharge - Discharge Referrals: LAURA GONG DO [Primary Care Provider] - Follow up as needed
[2020-08-21] MEDS ORDERED: NORMAL SALINE 1000 ML 1,000 ML IV ONE (19:36)
[2020-08-21] MEDS ORDERED: ONDANSETRON HCL INJ/PF 4 MG/2 ML SDV IV ONE (22:14)
[2020-08-21 22:17] LABS: ABSOLUTE BASOPHILS # (AUTO) 0.1 10^3/uL (0.0-0.2); ABSOLUTE EOSINOPHILS # (AUTO) 0.1 10^3/uL (0.0-0.6); ABSOLUTE LYMPHOCYTES (AUTO) 2.4 10^3/uL (0.5-4.7); ABSOLUTE MONOCYTES (AUTO) 0.6 10^3/uL (0.1-1.4); ABSOLUTE NEUT (AUTO) 8.6 10^3/uL (1.7-8.2); BASOPHILS % (AUTO) 0.7 % (0-2); EOSINOPHILS % (AUTO) 0.5 % (0-6); HEMATOCRIT 41.9 % (36.0-47.0); HEMOGLOBIN 14.4 g/dL (12.0-15.5); LYMPHOCYTES % (AUTO) 20.7 % (13-45); MEAN CORPUSCULAR HEMOGLOBIN 34.3 pg (27.0-33.4); MEAN CORPUSCULAR HGB CONC 34.4 g/dL (32.0-36.0); MEAN CORPUSCULAR VOLUME 100 fl (80-97); MONOCYTES % (AUTO) 5.1 % (3-13); PLATELET COUNT 358 10^3/uL (150-450); RED BLOOD COUNT 4.21 10^6/uL (3.72-5.28); RED CELL DISTRIBUTION WIDTH 13.6 % (11.5-14.0); TOTAL CELLS COUNTED % (AUTO) 100 %; WHITE BLOOD COUNT 11.8 10^3/uL (4.0-10.5)
[2020-08-21] MEDS ORDERED: FAMOTIDINE INJ/PF 20 MG/2 ML SDV IV ONE (22:20)
--- NOTE | 2020-08-21 22:21 | ER Document Report ---
ED General - General Chief Complaint: Vomiting Stated Complaint: ABDOMINAL PAIN,VOMITING Time Seen by Provider: 08/21/20 19:28 Primary Care Provider: LAURA LAST DO [Primary Care Provider] - Follow up as needed Mode of Arrival: Ambulatory TRAVEL OUTSIDE OF THE [place] IN LAST 30 DAYS: No - HPI Notes: 30-year-old female to the emergency department with complaints of nausea and vomiting with upper abdominal pain for the past 2 days. Denies any fevers or chills or diarrhea. She denies any sore throat, cough, loss of smell or taste. She not had any exposure to anyone with Covid that she knows of. She is a [employer]. She states that she is not on any sick contacts with nausea and vomiting either. She states that she has a history of reflux and that when it gets really bad it acts like this. Denies any alcohol use. Denies any surgeries on her abdomen. She states that she has been vomiting she is seeing some flecks of blood. She was given IM Zofran in triage which has not improved her symptoms. She states in the past she has had Reglan and that has worked. 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: Family Family History: Reviewed & Not Pertinent, Other - Denied by the patient - Past Medical History Cardiac Medical History: Reports: None Pulmonary Medical History: Reports: None GI Medical History: Reports: Hx Gastroesophageal Reflux Disease Musculoskeletal Medical History: Reports Hx Musculoskeletal Trauma Past Surgical History: Reports: Hx Section - 3 - Immunizations Immunizations up to date: Yes Hx Diphtheria, Pertussis, Tetanus Vaccination: Yes - < 10 yrs Review of Systems - Review of Systems Constitutional: denies: Chills, Fever EENT: No symptoms reported Cardiovascular: denies: Chest pain, Palpitations, Orthopnea, Dyspnea, Syncope, Dizziness, Lightheaded Respiratory: denies: Cough, Short of breath Gastrointestinal: Abdominal pain, Nausea, Vomiting. denies: Diarrhea Genitourinary: No symptoms reported Musculoskeletal: No symptoms reported Skin: No symptoms reported Hematologic/Lymphatic: No symptoms reported Neurological/Psychological: No symptoms reported -: Yes All other systems reviewed and negative Physical Exam - Vital signs Vitals: Temp Pulse Resp BP Pulse Ox 98.5 F 70 16 128/86 H 100 08/21/20 18:34 08/21/20 18:34 08/21/20 18:34 08/21/20 18:34 08/21/20 18:34 Interpretation: Normal - General General appearance: Appears well, Alert In distress: None - HEENT Head: Normocephalic, Atraumatic Eyes: Normal Pupils: PERRL Neck: Normal, Supple - Respiratory Respiratory status: No respiratory distress Chest status: Nontender Breath sounds: Normal. No: Rales, Rhonchi, Wheezing Chest palpation: Normal - Cardiovascular Rhythm: Regular Heart sounds: Normal auscultation Murmur: No - Abdominal Inspection: Normal Distension: No distension Bowel sounds: Normal Tenderness: Tender - Tenderness to palpation to the epigastrium, left upper quadrant and right upper quadrant. Negative Traore's sign. Abdomen is soft and not rigid. Organomegaly: No organomegaly - Back Back: Normal, Nontender. 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 She states that the Reglan and Benadryl helped her tremendously. She states that her abdomen no longer hurts. We discussed her labs to include low potassium and mildly elevated leukocytosis. I suspect that the leukocytosis is from vomiting. She is not . Mag nesium is reasonable she does not have an elevated lipase or any other concerning labs. Her repeat abdominal exam is improved. She would like to try p.o. challenge with mono mathew. If she tolerates we will discharge home. Impression: Nausea vomiting, epigastric abdominal pain. Suspect that there could be a gastritis involved with this. Patient much improved after Reglan and Benadryl. She is no longer vomiting and tolerating p.o. mono mathew. She has an improved abdominal exam. Plan to discharge home. Follow-up with primary care. Patient agrees with the plan. - Vital Signs Vital signs: Temp Pulse Resp BP Pulse Ox 98.3 F 70 16 119/73 97 08/22/20 01:13 08/22/20 01:13 08/22/20 01:13 08/22/20 01:13 08/22/20 01:13 - Laboratory Result Diagrams: 08/21/20 22:06 08/21/20 22:06 Laboratory results interpreted by me: 08/21/20 08/21/20 22:06 22:06 WBC 11.8 H MCV 100 H MCH 34.3 H Absolute Neuts (auto) 8.6 H Potassium 3.3 L Chloride 96 L Glucose 113 H Calcium 10.3 H Creatine Kinase 193 H Total Protein 8.3 H Discharge - Discharge Clinical Impression: Vomiting, Epigastric abdominal pain, Hypokalemia Condition: Stable Disposition: HOME, SELF-CARE Instructions: Vomiting ([facility]) Additional Instructions: Push fluids at home. Return if worsening symptoms. Take medicines as prescribed. [place] diet as tolerated in the next 6 to 12 hours of bananas, rice, applesauce, toast, Jell-O. Follow-up with Dr. Last without fail. Prescriptions: Sucralfate [Carafate Susp 1 Gm/10 Ml Udcup] 1 gm PO TID #300 ml Promethazine HCl [Phenergan 25 mg Tablet] 1 tab PO Q6H PRN #15 tablet PRN Reason: Potassium Chloride 20 meq PO DAILY #7 [email or web address] Forms: Return to Work Referrals: LAURA LAST DO [Primary Care Provider] - Follow up as needed
[2020-08-21 22:34] LABS: ALBUMIN 4.9 g/dL (3.5-5.0); ALKALINE PHOSPHATASE 84 U/L (38-126); ANION GAP 13 (5-19); ASPARTATE AMINO TRANSFERASE 32 U/L (14-36); BILIRUBIN,DIRECT 0.1 mg/dL (0.0-0.4); BILIRUBIN,TOTAL 0.7 mg/dL (0.2-1.3); BLOOD UREA NITROGEN 17 mg/dL (7-20); CALCIUM 10.3 mg/dL (8.4-10.2); CARBON DIOXIDE 30 mmol/L (22-30); CHLORIDE 96 mmol/L (98-107); CREATINE KINASE 193 U/L (30-135); GLUCOSE 113 mg/dL (75-110); POTASSIUM 3.3 mmol/L (3.6-5.0); TOTAL PROTEIN 8.3 g/dL (6.3-8.2)
[2020-08-21] MEDS ORDERED: METOCLOPRAMIDE HCL INJ/PF 10 MG/2 ML SDV IV ONE (22:52)
[2020-08-21] MEDS ORDERED: DIPHENHYDRAMINE HCL 50 MG/ML VIAL IV ONE (22:52)
[2020-08-22 01:13] VITALS: BP 119/73
== END 2020-08-22 01:13 | disposition home or self-care (01) ==
LOC: ER 18:25
DX: R11.2 Nausea with vomiting, unspecified (principal); K21.9 Gastro-esophageal reflux disease without esophagitis; R10.13 Epigastric pain; R10.816 Epigastric abdominal tenderness; R10.812 Left upper quadrant abdominal tenderness; R10.811 Right upper quadrant abdominal tenderness; E87.6 Hypokalemia; D72.829 Elevated white blood cell count, unspecified; F17.210 Nicotine dependence, cigarettes, uncomplicated; Z87.19 Personal history of other diseases of the digestive system
CPT/HCPCS: 99284; 96361; 96374; 96375; 36415; 82550; 83690; 83735; 84703; 85025; 80053; J1200; J2765; J2405; J7030; S0028